=== PATIENT | female | born 1965 | race Caucasian/White ===

== ENCOUNTER 2017-01-10 12:49 | Observation (INO) | payer BC ==
[~2017-01-10] VITALS: Ht 162.6 cm; Wt 116.7 kg
[~2017-01-10 12:49] MED LIST: ALBUAER2 PO; ATRINSX NEB; EPP3/2 IM; PROM25TA9 PO; ZNTT/150 PO
[2017-01-10] MEDS ORDERED: MULT-506 PO (13:22)
[2017-01-10] MEDS ORDERED: SNG10 PO (13:22)
[2017-01-10] MEDS ORDERED: CHOL1CHW10 PO (13:22)
[2017-01-10] MEDS ORDERED: VNTHFA/IN INH (13:22)
--- NOTE | 2017-01-10 13:48 | DIAGNOSTIC IMAGING REPORT ---
CHEST ONE VIEW PORTABLE CLINICAL HISTORY: Atypical chest pain and shortness of breath COMPARISON STUDY: 03/02/2016 FINDINGS: The cardiac and mediastinal contours are normal. There is no evidence of focal pulmonary consolidation. There is no evidence of failure. No pleural effusions are visualized.[ IMPRESSION: No active disease in the chest. Electronically signed by: Gigi Winston M.D. 01/10/2017 1:47 PM Dictated Date/Time: 01/10/2017 1:47 PM
[2017-01-10 13:51] LABS: HEMATOCRIT 43.6 % (37-47); MEAN CELL VOLUME 89.2 fL (80-100); MEAN CORPUSCULAR HEMOGLOBIN 30.9 pg (25-34); MEAN CORPUSCULAR HGB CONC 34.6 g/dl (32-36); MEAN PLATELET VOLUME 10.4 fL (7.4-10.4); PLATELET COUNT 248 K/uL (130-400); RED BLOOD COUNT 4.89 M/uL (4.2-5.4); WHITE BLOOD COUNT 7.54 K/uL (4.8-10.8)
[2017-01-10 14:06] LABS: INR 0.9 (0.9-1.1); PROTHROMBIN TIME (PATIENT) 10.1 SECONDS (9.0-12.0)
[2017-01-10] MEDS ORDERED: ASPIRIN 81 MG CHEW PO STA (14:08)
[2017-01-10 14:09] LABS: BUN/CREATININE RATIO 20.5 (10-20); CALCIUM 9.1 mg/dl (8.5-10.1); POTASSIUM 4.2 mmol/L (3.5-5.1)
[2017-01-10 14:14] LABS: ALB/GLOB RATIO 1.1 (0.9-2); CKMB/CK RATIO 1.1 (0-3.0)
[2017-01-10] MEDS ORDERED: NITROGLYCERIN 0.4 MG SL PER TAB CHARGE SL PRN ×2 (14:15→18:30)
[2017-01-10] MEDS ORDERED: FENTANYL CITRATE INJ 50 MCG/1 ML 2 ML VIAL IV STA (14:52)
--- NOTE | 2017-01-10 15:05 | EMERGENCY ROOM VISIT NOTE ---
History Report prepared by Nilson: Daniel Horton Under the Supervision of: Dr. Victor Manuel Camp D.O. First contact with patient: 13:52 Chief Complaint: SHORTNESS OF BREATH Stated Complaint: SOB AT TIMES, SLIGHT CHEST PAIN, PINS/NEEDLES NECK Nursing Triage Summary: Triage Note: Pt reports "i have this fullness in both sides of my neck and pins and needles down both my arms.' pt reports she has had this feeling since 1100. pt reports chest and neck pain "and i am short of breath at times." History of Present Illness The patient is a 51 year old female who presents to the Emergency Room with complaints of intermittent "pins and needles" feelings in the sides of her neck , and down the back of her arms that she has been experiencing for the past week. The patient is also complaining of a "fullness" feeling in her throat, a "heaviness" in her chest, and difficulty taking a deep breath. These symptoms have been present for the past week, and seemed to only onset with exertion. The symptoms would usually resolve with relaxation, today however the symptoms onset without exertion and did not subside with exercise. The patient does have a history of atrial fibrillation and can feel her heart fluttering intermittently throughout these episodes. Her heart fluttering lasts for about 10 seconds at a time. She is not a diabetic but does have low blood sugar commonly. The patient denies any recent long trips, and no family history of heart disease. Patient denies headache, change in vision, fevers, vomiting, diarrhea, pain with urination, and melena. 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 A total of 10 systems reviewed and were otherwise negative. Past Medical & Surgical Medical Problems: (1) Asthma, Unspecified (2) Chest Pain (3) Cholelithiasis Nos (4) Esophageal Reflux (5) Int Hemrrhoid W Comp Nec Family History Cancer Diabetes mellitus Heart disease Hypertension Lung disease Social History Smoking Status: Never Smoker Alcohol Use: occasionally Marital Status: Housing Status: lives with family Occupation Status: employed Current/Historical Medications Scheduled Cholecalciferol (Vitamin D3), 1,000 UNIT PO 2XWK Epinephrine (Epipen), 0.3 MG IM UD Multivitamin (Multivitamin), 1 TAB PO 2XWK Scheduled PRN Albuterol Hfa (Ventolin Hfa), 1-2 PUFFS INH Q4 PRN for Shortness of Breath Montelukast Sod (Montelukast Sodium), 10 MG PO DAILY PRN for PRN Ranitidine (Zantac), 150 MG PO QPM PRN for PRN Allergies Coded Allergies: Azithromycin (Verified Allergy, Severe, throat swelling, 01/10/17) Adhesives (Verified Allergy, Mild, RASH, 01/10/17) Latex (Verified Allergy, Mild, RASH, 01/10/17) Propoxyphene (Verified Allergy, Mild, RASH, 01/10/17) Amoxicillin (Unverified Allergy, Unknown, UNKNOWN, 01/10/17) Clavulanic Acid (Unverified Allergy, Unknown, UNKNOWN, 01/10/17) Penicillins (Verified Allergy, Unknown, AUGMENTIN, 01/10/17) Physical Exam Vital Signs Date Time Temp Pulse Resp B/P Pulse Ox O2 Delivery O2 Flow Rate FiO2 01/10/17 18:29 73 01/10/17 18:25 75 18 134/95 98 Room Air 01/10/17 16:45 73 18 106/81 98 Room Air 01/10/17 15:47 79 18 114/90 98 Room Air 01/10/17 15:14 61 18 123/95 98 Room Air 01/10/17 14:27 80 18 124/92 98 Room Air 01/10/17 13:46 77 01/10/17 12:53 37.0 83 18 147/83 98 Room Air Physical Exam GENERAL: Sitting up in bed, well appearing, well nourished, no distress, non- toxic EYE EXAM: normal conjunctiva, PERRL and EOM's grossly intact OROPHARYNX: no exudate, no erythema, lips, buccal mucosa, and tongue normal and mucous membranes are moist NECK: supple, no nuchal rigidity, no adenopathy, non-tender LUNGS: Clear to auscultation. Normal chest wall mechanics HEART: no murmurs, S1 normal and S2 normal ABDOMEN: abdomen soft, non-tender, normo-active bowel sounds, no palpable pulsatile, no rebound or guarding. BACK: Back is symmetrical on inspection and there is no deformity, no midline tenderness, no CVA tenderness. SKIN: no rashes and no bruising UPPER EXTREMITIES: Radial pulses equal bilaterally. upper extremities are grossly normal. LOWER EXTREMITIES: Calves equal bilaterally. No pitting edema. NEURO EXAM: Normal sensorium, cranial nerves II-XII grossly intact, normal speech, no gross weakness of arms, no gross weakness of legs. Medical Decision & Procedures ER Provider Diagnostic Interpretation: Xray results per the radiologist and my interpretation. Other results have been interpreted by the radiologist and reviewed by me. CHEST CTA for PULMONARY ARTERIES CT DOSE: 435.36 mGy.cm HISTORY: Chest pain dyspnea TECHNIQUE: Multiaxial CT images of the chest were performed following the intravenous administration of contrast to evaluate the pulmonary arteries. Maximal intensity projection images were also obtained. COMPARISON STUDY: 03/02/2016 FINDINGS: There is a normal caliber thoracic aorta with no evidence for dissection. There is no evidence for pulmonary embolus. No pleural effusions. No pneumothorax. The liver and spleen are unremarkable. No mediastinal or hilar lymphadenopathy. The central airways are patent. The lungs are clear. IMPRESSION: No evidence for pulmonary embolus. The lungs are clear. Electronically signed by: Tucker Escalante M.D. 01/10/2017 3:33 PM Dictated Date/Time: 01/10/2017 3:29 PM CHEST ONE VIEW PORTABLE CLINICAL HISTORY: Atypical chest pain and shortness of breath COMPARISON STUDY: 03/02/2016 FINDINGS: The cardiac and mediastinal contours are normal. There is no evidence of focal pulmonary consolidation. There is no evidence of failure. No pleural effusions are visualized.[ IMPRESSION: No active disease in the chest. Electronically signed by: Gigi Winston M.D. 01/10/2017 1:47 PM Dictated Date/Time: 01/10/2017 1:47 PM Laboratory Results 01/10/17 13:37 01/10/17 13:37 Test 01/10/17 13:37 01/10/17 13:45 01/10/17 17:54 01/10/17 18:18 Red Blood Count 4.89 M/uL (4.2-5.4) Mean Corpuscular Volume 89.2 fL (80-100) Mean Corpuscular Hemoglobin 30.9 pg (25-34) Mean Corpuscular Hemoglobin Concent 34.6 g/dl (32-36) RDW Standard Deviation 41.3 fL (36.4-46.3) RDW Coefficient of Variation 12.7 % (11.5-14.5) Mean Platelet Volume 10.4 fL (7.4-10.4) Prothrombin Time 10.1 SECONDS (9.0-12.0) Prothromb Time International Ratio 0.9 (0.9-1.1) Activated Partial Thromboplast Time 25.2 SECONDS (21.0-31.0) Partial Thromboplastin Ratio 1.0 D-Dimer 530 ug/L FEU (0-500) Anion Gap 11.0 mmol/L (3-11) Est Creatinine Clear Calc Drug Dose 84.6 ml/min Estimated GFR () 76.1 Estimated GFR (Non- 65.6 BUN/Creatinine Ratio 20.5 (10-20) Calcium Level 9.1 mg/dl (8.5-10.1) Total Bilirubin 0.5 mg/dl (0.2-1) Aspartate Amino Transf (AST/SGOT) 21 U/L (15-37) Alanine Aminotransferase (ALT/SGPT) 35 U/L (12-78) Alkaline Phosphatase 64 U/L (45-117) Total Protein 7.4 gm/dl (6.4-8.2) Albumin 3.9 gm/dl (3.4-5.0) Globulin 3.5 gm/dl (2.5-4.0) Albumin/Globulin Ratio 1.1 (0.9-2) Bedside Troponin I 0.000 ng/ml (0-0.045) Creatine Kinase MB Ratio (0-3.0) Laboratory results per my review. Medications Administered Medications (Trade) Dose Ordered Sig/Petar Route Start Time Stop Time Status Last Admin Dose Admin Aspirin (Aspirin Chew) 324 mg NOW STAT PO 01/10/17 14:08 01/10/17 14:09 DC 01/10/17 14:25 324 MG Nitroglycerin (Nitrostat Tab) 0.4 mg Q5M PRN SL 01/10/17 14:15 02/09/17 14:14 01/10/17 14:26 0.4 MG Fentanyl Citrate (Fentanyl Inj) 50 mcg NOW STAT IV 01/10/17 14:52 01/10/17 14:53 DC 01/10/17 15:42 50 MCG Ondansetron HCl (Zofran Inj) 4 mg NOW STAT IV 01/10/17 15:39 01/10/17 15:40 DC 01/10/17 15:42 4 MG ECG Indication: chest pain Rate (beats per minute): 79 Rhythm: sinus rhythm Findings: other (Normal axis, intraventricular conduction delay) Comparison ECG Date: 03/02/2016 Change: no significant change ED Course ED COURSE: Vital signs were reviewed and showed Normal Vitals The patients medical record was reviewed The above diagnostic studies were performed and reviewed. ED treatments and interventions as stated above. 1359: The patient was evaluated in room C4. A complete history and physical examination was performed. 1408: Ordered Aspiring 3234 mg PO. 1415: Ordered Nitroglycerin 0.4 mg SL. 1452: Ordered Fentanyl Citrate 50 mcg IV. 1530: I checked on the patient and updated her at this time, she is feeling better. 1539: Ordered Zofran 4 mg IV. 1548: Upon reevaluation, the patient states her pain has significantly improved.I discussed my findings with the patient and her understands and agrees with the treatment plan. Based on the patients age, coexisting illnesses, exam and lab findings the decision to treat as an inpatient was made. The patient remained stable while under my care. The patient will be evaluated for further management. 1556: I discussed the case with Dr. Wero [place] Hospitalist at this time, he will evaluate the patient for further treatment. Medical Decision Differential diagnoses includes but is not limited to acute coronary syndrome, myocardial infarction, pericarditis, pulmonary embolus, aortic dissection, pneumonia, pneumothorax, musculoskeletal, shingles, esophageal. Patient is a 51-year-old female who presents the ER for exertional chest pain associated with shortness of breath and neck pain which has been present for the past week. Today she got short of breath without exertion. She has no other complaints. Labs including troponin are negative. EKG was nondiagnostic. Chest pain didn't worsen slightly throughout her stay in the ER and repeat EKG was ordered. She was given aspirin. D-dimer was ordered and was positive. CT PE was performed and was negative. She's given fentanyl with resolution of her pain. With her exertional symptoms I elected to admit her to internal medicine for further workup as due to timing of was unable to get a stress test. Consults Time Called: 1544 Consulting Physician: Dr. Wero [place] Hospitalist Returned Call: 1559 I discussed the case with Dr. Wero [place] Hospitalist at this time, he will evaluate the patient for further treatment. Impression Primary Impression: Precordial chest pain Scribe Attestation The scribe's documentation has been prepared under my direction and personally reviewed by me in its entirety. I confirm that the note above accurately reflects all work, treatment, procedures, and medical decision making performed by me. Departure Information Dispostion Being Evaluated By Hospitalist Referrals Kalpesh Martinez M.D. (PCP) Patient Instructions My [facility]
[2017-01-10] MEDS ORDERED: OPTIRAY 320 IV PRN (15:15)
--- NOTE | 2017-01-10 15:34 | DIAGNOSTIC IMAGING REPORT ---
CHEST CTA for PULMONARY ARTERIES CT DOSE: 435.36 mGy.cm HISTORY: Chest pain dyspnea TECHNIQUE: Multiaxial CT images of the chest were performed following the intravenous administration of contrast to evaluate the pulmonary arteries. Maximal intensity projection images were also obtained. COMPARISON STUDY: 03/02/2016 FINDINGS: There is a normal caliber thoracic aorta with no evidence for dissection. There is no evidence for pulmonary embolus. No pleural effusions. No pneumothorax. The liver and spleen are unremarkable. No mediastinal or hilar lymphadenopathy. The central airways are patent. The lungs are clear. IMPRESSION: No evidence for pulmonary embolus. The lungs are clear. Electronically signed by: Tucker Escalante M.D. 01/10/2017 3:33 PM Dictated Date/Time: 01/10/2017 3:29 PM
[2017-01-10] MEDS ORDERED: ONDANSETRON INJ 2 MG/ML 2 ML VIAL IV STA (15:39)
--- NOTE | 2017-01-10 18:26 | History and Physical ---
History & Physical Date & Time of Service: Jan 10, 2017 at 18:23 Chief Complaint: Sob At Times, Slight Chest Pain, Pins/[place] Neck Primary Care Physician: Neptali Martinez M.D. History of Present Illness Source: patient Ms. Ontiveros is a 51 y/o female with PMHx of SVT S/P Ablation (1990), MVP with Regurgitation, Asthma, GERD, and Avascular Necrosis of B/L Shoulders and Hips who presents to the ED complaining of "pins and needles" sensation of her neck and arms 1 week. She also describes the sensation as a fullness in her neck with radiation into the sternum of the chest that produces a heaviness sensation and associated shortness of breath and difficulty taking a deep breath. The symptoms initially occurred when she was exercising on the treadmill. She thought this may be related to blood pressure but when she took her blood pressure it was around 120/80. Initially with rest the symptoms spontaneously subsided. However today, she reports that the similar symptoms reemerged. However this time symptoms presented at rest today. At this point the symptoms have not completely subsided. Reports associated palpitations. States she has a history of SVT and was told she initially had two SA nodes and underwent ablation in 1990. She was treated with Quinidine until 1998 due to multiple runs of SVT. Currently reports control of her palpitations and states they minimally occur. Associated nausea without vomiting. She does report increased stress as she has been caring for a neighbor on hospice for the past 2 weeks. Also reports significant acid reflux. Feels that this has been largely under control at this time. Patient is premenopausal however suspects the beginnings of menopause. She reports that she has borderline high cholesterol. She does not smoke, drink, or use illegal drugs. She does not report a personal history of thyroid issues but states her son has hypothyroidism. She denies fevers/chills, vomiting, abdominal pain, dysuria, constipation/diarrhea. In the ED, initial troponin was negative. EKG with normal sinus rhythm with occasional PVC and incomplete right bundle branch block. D-dimer of 530. CTA of the chest without evidence of pulmonary embolism and lung kay without consolidation. Patient given ASA 324 mg x 1. Nitroglycerin 0.4 mg 1. She reports no relief with nitroglycerin. Received fentanyl 50 mcg which resolved her pain temporarily. She will be admitted to telemetry for chest pain rule out. Past Medical/Surgical History Medical Problems: (1) Asthma, Unspecified (2) Chest Pain (3) Cholelithiasis Nos (4) Esophageal Reflux (5) Int Hemrrhoid W Comp Nec (6) Supraventricular tachycardia Medical Problems: (1) Asthma, Unspecified Status: Chronic (2) Cholelithiasis Nos Status: Chronic (3) Esophageal Reflux Status: Chronic (4) Int Hemrrhoid W Comp Nec Status: Resolved Family History Cancer Diabetes mellitus Heart disease Hypertension Hypothyroidism Lung disease Social History Smoking Status: Never Smoker Marital Status: Occupational Status: employed Immunizations History of Influenza Vaccine: No History of Tetanus Vaccine?: Unknown Tetanus Immunization Date: Jul 09, 2004 History of Pneumococcal: No History of Hepatitis B Vaccine: Yes Hepatitis Immunization Date: Jul 09, 1998 Multi-Drug Resistant Organisms History of MDRO: No Allergies Coded Allergies: Azithromycin (Verified Allergy, Severe, throat swelling, 01/10/17) Adhesives (Verified Allergy, Mild, RASH, 01/10/17) Latex (Verified Allergy, Mild, RASH, 01/10/17) Propoxyphene (Verified Allergy, Mild, RASH, 01/10/17) Amoxicillin (Unverified Allergy, Unknown, UNKNOWN, 01/10/17) Clavulanic Acid (Unverified Allergy, Unknown, UNKNOWN, 01/10/17) Penicillins (Verified Allergy, Unknown, AUGMENTIN, 01/10/17) Home Medications Scheduled Cholecalciferol (Vitamin D3), 1,000 UNIT PO 2XWK Epinephrine (Epipen), 0.3 MG IM UD Multivitamin (Multivitamin), 1 TAB PO 2XWK Scheduled PRN Albuterol Hfa (Ventolin Hfa), 1-2 PUFFS INH Q4 PRN for Shortness of Breath Montelukast Sod (Montelukast Sodium), 10 MG PO DAILY PRN for PRN Ranitidine (Zantac), 150 MG PO QPM PRN for PRN Review of Systems Constitutional: No chills, No fever Eyes: No worsening of vision ENT: + problem reported (neck numbness/tingling; neck "fullness"), No nasal symptoms, No sore throat, No trouble swallowing Respiratory: + dyspnea on exertion, No cough, No dyspnea at rest Cardiovascular: + chest pain ("heaviness"), + palpitations Abdomen: + nausea, No constipation, No diarrhea, No pain, No vomiting Musculoskeletal: No calf pain, No swelling Genitourinary - Female: No dysuria Neurologic: + numbness/tingling (neck), + problem reported (intermittent lightheadedness) Integumentary: No rash Physical Exam Vital Signs Date Time Temp Pulse Resp B/P Pulse Ox O2 Delivery O2 Flow Rate FiO2 01/10/17 16:45 73 18 106/81 98 Room Air 01/10/17 15:47 79 18 114/90 98 Room Air 01/10/17 15:14 61 18 123/95 98 Room Air 01/10/17 14:27 80 18 124/92 98 Room Air 01/10/17 13:46 77 01/10/17 12:53 37.0 83 18 147/83 98 Room Air General Appearance: WD/WN, no apparent distress Head: normocephalic, atraumatic Eyes: PERRL, sclerae normal ENT: hearing grossly normal Neck: supple, no adenopathy, thyroid normal, trachea midline Respiratory/Chest: lungs clear, normal breath sounds, no respiratory distress, no accessory muscle use Cardiovascular: regular rate, rhythm, no gallop, no murmur Abdomen/GI: normal bowel sounds, non tender, soft Back: normal inspection, no CVA tenderness Extremities/Musculoskelatal: no calf tenderness, no pedal edema Neurologic/Psych: alert, oriented x 3 Skin: normal color, warm/dry Diagnostics Laboratory Results Results Past 24 Hours Test 01/10/17 13:37 01/10/17 13:45 01/10/17 17:54 01/10/17 18:18 Range/Units White Blood Count 7.54 4.8-10.8 K/uL Red Blood Count 4.89 4.2-5.4 M/uL Hemoglobin 15.1 12.0-16.0 g/dL Hematocrit 43.6 37-47 % Mean Corpuscular Volume 89.2 80-100 fL Mean Corpuscular Hemoglobin 30.9 25-34 pg Mean Corpuscular Hemoglobin Concent 34.6 32-36 g/dl RDW Standard Deviation 41.3 36.4-46.3 fL RDW Coefficient of Variation 12.7 11.5-14.5 % Platelet Count 248 130-400 K/uL Mean Platelet Volume 10.4 7.4-10.4 fL Prothrombin Time 10.1 9.0-12.0 SECONDS Prothromb Time International Ratio 0.9 0.9-1.1 Activated Partial Thromboplast Time 25.2 21.0-31.0 SECONDS Partial Thromboplastin Ratio 1.0 D-Dimer 530 0-500 ug/L FEU Sodium Level 140 136-145 mmol/L Potassium Level 4.2 3.5-5.1 mmol/L Chloride Level 105 98-107 mmol/L Carbon Dioxide Level 24 21-32 mmol/L Anion Gap 11.0 3-11 mmol/L Blood Urea Nitrogen 21 7-18 mg/dl Creatinine 1.00 0.60-1.20 mg/dl Est Creatinine Clear Calc Drug Dose 84.6 ml/min Estimated GFR () 76.1 Estimated GFR (Non- 65.6 BUN/Creatinine Ratio 20.5 10-20 Random Glucose 84 70-99 mg/dl Calcium Level 9.1 8.5-10.1 mg/dl Total Bilirubin 0.5 0.2-1 mg/dl Aspartate Amino Transf (AST/SGOT) 21 15-37 U/L Alanine Aminotransferase (ALT/SGPT) 35 12-78 U/L Alkaline Phosphatase 64 45-117 U/L Total Creatine Kinase 71 26-192 U/L Creatine Kinase MB 0.8 0.5-3.6 ng/ml Creatine Kinase MB Ratio 1.1 0-3.0 Total Protein 7.4 6.4-8.2 gm/dl Albumin 3.9 3.4-5.0 gm/dl Globulin 3.5 2.5-4.0 gm/dl Albumin/Globulin Ratio 1.1 0.9-2 Bedside Troponin I 0.000 0-0.045 ng/ml Diagnostic Radiology CHEST CTA for PULMONARY ARTERIES CT DOSE: 435.36 mGy.cm HISTORY: Chest pain dyspnea TECHNIQUE: Multiaxial CT images of the chest were performed following the intravenous administration of contrast to evaluate the pulmonary arteries. Maximal intensity projection images were also obtained. COMPARISON STUDY: 03/02/2016 FINDINGS: There is a normal caliber thoracic aorta with no evidence for dissection. There is no evidence for pulmonary embolus. No pleural effusions. No pneumothorax. The liver and spleen are unremarkable. No mediastinal or hilar lymphadenopathy. The central airways are patent. The lungs are clear. IMPRESSION: No evidence for pulmonary embolus. The lungs are clear. CHEST ONE VIEW PORTABLE CLINICAL HISTORY: Atypical chest pain and shortness of breath COMPARISON STUDY: 03/02/2016 FINDINGS: The cardiac and mediastinal contours are normal. There is no evidence of focal pulmonary consolidation. There is no evidence of failure. No pleural effusions are visualized.[ IMPRESSION: No active disease in the chest. EKG Sinus rhythm with occasional Premature ventricular complexes Incomplete right bundle branch block Abnormal ECG When compared with ECG of 02-MAR-2016 19:16, Premature ventricular complexes are now Present Confirmed by NEPTALI WATKINS ([id number]) on 01/10/2017 3:32:15 PM Impression Assessment and Plan Ms. Ontiveros is a 51 y/o female with PMHx of SVT S/P Ablation (1990), MVP with Regurgitation, Asthma, GERD, and Avascular Necrosis of B/L Shoulders and Hips who presents to the ED complaining of "pins and needles" sensation of her neck and arms 1 week. Neck Fullness with Associated Chest Heaviness and SOB: - Considered avascular necrosis contributing however symptoms are not exacerbated with ROM exercises - TSH - R/O thyroid dysfunction - no enlargement or nodules appreciated on exam - Serial cardiac enzymes - Nitroglycerin 0.4 mg SL PRN - ASA 81 mg daily - Toradol 15 mg IV PRN - Stress echo SVT S/P Ablation: - EKG with intermittent PVCs - monitor on telemetry GERD: - Zantac 150 mg daily Asthma: - Ventolin PRN & Singulair 10 mg daily DVT Prophylaxis: - TEDs/SCDs Code Status: FULL RESUSCITATION Disposition: Patient from home Pt seen/examined independently - above H&P and orders discussed w/pt and PA admitted with CP - minimal risk factors present however her pain became worse when she was exercising and she does so regularly NTG did not help - pain radiates into neck and is partly reproducible OE AAO x 3 S1,2 R CTAB NTND pain on movement of neck P: As pain has persisted we will schedule a stress echo in the AM Pt aware and agreeable - no chest pain on admission - EKG and trop WNL Level of Care Telemetry Resuscitation Status FULL RESUSCITATION VTE Prophylaxis VTE Risk Assessment Done? Y/N: Yes Risk Level: Moderate Given or contraindicated: T.E.D. Stockings, SCD's Social Service Consult None Apply
[2017-01-10] MEDS ORDERED: ACETAMINOPHEN 325 MG TAB PO PRN (18:30)
[2017-01-10] MEDS ORDERED: MAGNESIUM HYDROXIDE SUSP 30 ML UDC PO PRN (18:30)
[2017-01-10] MEDS ORDERED: KETOROLAC TROMETHAMINE 15 MG/ML VIAL IM PRN (18:30)
[2017-01-10] MEDS ORDERED: ALUMINUM/MAGNESIUM/SIMETH (MAALOX MAX) 30 ML UDC PO PRN (18:30)
[2017-01-10] MEDS ORDERED: ALBUTEROL HFA 8 GM INHALER INH PRN (18:30)
[2017-01-10] MEDS ORDERED: ONDANSETRON INJ 2 MG/ML 2 ML VIAL IV PRN (18:30)
[2017-01-10] MEDS ORDERED: RANITIDINE HCL 150 MG TAB PO PRN (18:30)
[2017-01-10] MEDS ORDERED: MONTELUKAST SOD 10 MG TAB PO PRN (18:30)
[2017-01-10] MEDS ORDERED: POLYETHYLENE (MIRALAX) 17 GM PACK PO PRN (18:30)
[2017-01-10 18:45] VITALS: BP 117/83; PULSE 77; TEMP 36.7; O2SAT 98; Ht 162.6 cm; Wt 116.7 kg
[2017-01-10 18:51] LABS: CKMB/CK RATIO 0.8 (0-3.0)
[2017-01-10] MEDS ORDERED: IV FLUIDS COMPLETED PRN (19:00)
[2017-01-10 20:00] VITALS: BP 117/83; PULSE 91; TEMP 36.7; O2SAT 98
[2017-01-10] MEDS ORDERED: INFLUENZA VIRUS QUAD VACCINE 0.5 ML SYR IM. ONE (20:00)
[2017-01-10] MEDS ORDERED: INFLUENZA ADMINISTRATION CHARGE ONE (20:00)
[2017-01-10] MEDS ORDERED: KETOROLAC TROMETHAMINE 15 MG/ML VIAL IV PRN (22:00)
[2017-01-11] VITALS: BP 98/55; PULSE 78; TEMP 36.4; O2SAT 99
[2017-01-11 03:17] VITALS: BP 109/69; PULSE 74; TEMP 36.8; O2SAT 98
[2017-01-11 04:00] VITALS: O2SAT 98
[2017-01-11 06:41] LABS: HEMATOCRIT 41.8 % (37-47); MEAN CELL VOLUME 87.6 fL (80-100); MEAN CORPUSCULAR HEMOGLOBIN 29.6 pg (25-34); MEAN CORPUSCULAR HGB CONC 33.7 g/dl (32-36); MEAN PLATELET VOLUME 10.2 fL (7.4-10.4); PLATELET COUNT 223 K/uL (130-400); RED BLOOD COUNT 4.77 M/uL (4.2-5.4); WHITE BLOOD COUNT 6.33 K/uL (4.8-10.8)
[2017-01-11 07:07] LABS: BUN/CREATININE RATIO 17.1 (10-20); CALCIUM 8.9 mg/dl (8.5-10.1); CREATININE 1.2 mg/dl (0.60-1.20); POTASSIUM 4.6 mmol/L (3.5-5.1)
[2017-01-11 07:56] VITALS: BP 125/84; PULSE 80; TEMP 36.4; O2SAT 98
[2017-01-11] MEDS ORDERED: ASPIRIN 81 MG ECTAB PO SCH (09:00)
[2017-01-11] MEDS ORDERED: PERFLUTREN LIPID MICROSPHERE (DEFINITY) IV ONE (10:26)
--- NOTE | 2017-01-11 11:40 | EXERCISE STRESS ECHO ---
*NOTICE TO RECEIVING LIBERTARIAN AGENCY This information is strictly Confidential and protected under [place] law. [place] law prohibits you from making any further disclosure of this information unless further disclosure is expressly permitted by the written consent of the person to whom it pertains or is authorized by law. A general authorization for the release of medical or other information is not sufficient for this purpose. Hospital accepts no responsibility if the information is made available to any other person, INCLUDING THE PATIENT. Interpretation Summary * Name: SONYN POE Study Date: 01/11/2017 08:34 AM BP: 107/71 mmHg * Patient Location: [facility] HR: 74 * : 1965 (M/d/yyyy) Gender: Female Height: 64 in * Age: 51 yrs Ethnicity: CA Weight: 257 lb * Ordering Physician: Genna Upton * Referring Physician: Self, Referred * Performed By: Jak Espinal RCS * * Reason For Study: Chest Pain * BSA: 2.2 m2 * -- Conclusions -- * Normal stress echocardiogram at 7 METS and a peak heart rate of 85% predicted maximum. * No exercise induced chest pain. * No ECG changes. * Baseline echocardiogram notes normal left ventricular systolic function and no significant valvular pathology. Procedure Details * ECHOEX, CPT #[id number] * ECHO COLOR FLOW, CPT #[id number] * ECHO DOPPLER, CPT #[id number] * A contrast injection of Definity was performed to improve assessment of LV function. * Contrast was injected into an intravenous site in the right arm. * One vial of Definity ultrasound contrast was diluted in normal saline to a total volume of 10 ml. A total of '4' ml of solution was administered during imaging. * Lot # [id number] of Definity utilized for procedure. * Expiration date . * The attending nurse who injected the contrast agent was Delmar Mon RN. Left Ventricle * The left ventricle is normal in size. * There is normal left ventricular wall thickness. * Ejection Fraction = 55-60%. * Left ventricular systolic function is normal. * Resting wall motion: Normal. Stress wall motion: Appropriate increase in Left ventricular systolic function and decrease in cavity size. No stress induced segmental wall motion abnormalities. Right Ventricle * The right ventricle is not well visualized. * The right ventricular systolic function is normal as assessed by tricuspid annular plane systolic excursion (TAPSE) (normal >1.5 cm). Atria * The left atrial size is normal. * Right atrium not well visualized. * There is no evidence of atrial septal defect, but resolution does not allow assessment for a patent foramen ovale. Mitral Valve * The mitral valve is grossly normal. * There is no mitral valve stenosis. * Significant mitral regurgitation is absent. Tricuspid Valve * The tricuspid valve is not well visualized. * Significant tricuspid regurgitation is absent. Aortic Valve * The aortic valve is not well visualized. * The aortic valve opens well. * No hemodynamically significant valvular aortic stenosis. * There is no significant aortic regurgitation. Pulmonic Valve * The pulmonary valve is not well seen, but the Doppler examination is normal without significant regurgitation or stenosis. * Trace pulmonic valvular regurgitation. Great Vessels * The aortic root is normal size. Pericardium * There is no pericardial effusion. Stress Parameters * Normal baseline electrocardiogram. * Stress ECG: No ST changes. No arrhythmias. * The stress portion of this study was personally supervised by the undersigned interpreting physician. * Rest heart rate was '74' BPM. * Rest blood pressure was '107/71' * Maximum blood pressure was '187/96' * Maximum heart rate achieved was 153 bpm. * Maximum heart rate was 90 % of maximum age-predicted heart rate. * Total exercise time was '5:50' * Maximum exercise MET level achieved was '7.0' METS * Maximum treadmill speed was '2.5' miles per hour. * Maximum treadmill elevation was '12'% grade. MMode 2D Measurements and Calculations IVSd 0.92 cm IVSs 1.2 cm LVIDd 4.5 cm LVIDs 3.2 cm LVPWd 0.91 cm LVPWs 1.3 cm IVS/LVPW 1.0 FS 28.5 % EDV(Teich) 90.8 ml ESV(Teich) 40.8 ml EF(Teich) 55.1 % EDV(cubed) 89.1 ml ESV(cubed) 32.6 ml EF(cubed) 63.5 % % IVS thick 31.7 % % LVPW thick 43.2 % LV mass(C)d 134.9 grams LV mass(C)dI 62.0 grams/m\S\2 LV mass(C)s 129.0 grams LV mass(C)sI 59.3 grams/m\S\2 CO(Teich) 4.9 l/min CI(Teich) 2.2 l/min/m\S\2 SV(Teich) 50.1 ml SI(Teich) 23.0 ml/m\S\2 CO(cubed) 5.5 l/min CI(cubed) 2.5 l/min/m\S\2 SV(cubed) 56.5 ml SI(cubed) 26.0 ml/m\S\2 Ao root diam 3.0 cm Ao root area 7.1 cm\S\2 ACS 1.7 cm LA dimension 2.7 cm LA/Ao 0.91 LVAd ap4 33.9 cm\S\2 LVLd ap4 10.5 cm EDV(MOD-sp4) 92.0 ml LVAs ap4 18.4 cm\S\2 LVLs ap4 9.3 cm ESV(MOD-sp4) 31.0 ml EF(MOD-sp4) 66.3 % LVAd ap2 28.0 cm\S\2 LVLd ap2 10.8 cm EDV(MOD-sp2) 62.0 ml LVAs ap2 15.3 cm\S\2 LVLs ap2 9.0 cm ESV(MOD-sp2) 23.0 ml EF(MOD-sp2) 62.9 % CO(MOD-sp4) 5.9 l/min CI(MOD-sp4) 2.7 l/min/m\S\2 SV(MOD-sp4) 61.0 ml SI(MOD-sp4) 28.0 ml/m\S\2 CO(MOD-sp2) 3.8 l/min CI(MOD-sp2) 1.7 l/min/m\S\2 SV(MOD-sp2) 39.0 ml SI(MOD-sp2) 17.9 ml/m\S\2 Doppler Measurements and Calculations MV E max sean 93.5 cm/sec MV A max sean 85.7 cm/sec MV E/A 1.1 MV P1/2t max sean 82.1 cm/sec MV P1/2t 98.0 msec MVA(P1/2t) 2.2 cm\S\2 MV dec slope 245.4 cm/sec\S\2 MV dec time 0.24 sec Ao V2 max 111.3 cm/sec Ao max PG 5.0 mmHg Ao max PG (full) 0.08 mmHg LV V1 max PG 4.9 mmHg LV V1 max 110.4 cm/sec PA V2 max 87.9 cm/sec PA max PG 3.1 mmHg PI max sean 158.1 cm/sec PI max PG 10.0 mmHg PI dec slope 280.4 cm/sec\S\2 PI P1/2t 165.2 msec
--- NOTE | 2017-01-11 11:43 | Discharge Instructions ---
Discharge Instructions Date of Service Jan 11, 2017. Admission Reason for Admission: Chest Pain Discharge Discharge Diagnosis / Problem: Non-cardiac chest pain Discharge Goals Goal(s): Decrease discomfort, Improve function, Diagnostic testing, Therapeutic intervention Activity Recommendations Activity Limitations: resume your previous activity . Instructions / Follow-Up Instructions / Follow-Up You were admitted to the hospital for overnight observation after presenting to the ER with numbness/tingling in the neck and chest pain. You were admitted to rule out a cardiac etiology of the chest pain. Cardiac monitoring did not reveal any arrhythmias and you remained in a normal sinus rhythm. A stress echocardiogram (ultrasound of the heart) came back normal without acute cardiac findings. A repeat EKG did not show any ischemic changes. Your lab work came back largely normal without any significant findings. Your thyroid function and your cholesterol panel were both within normal limits. Your magnesium, which can cause numbness/tingling if it is low, was also within normal limits. Your symptoms may be related to your charity-menopausal state, so you should follow up with your primary care provider regarding further evaluation and work up. Medications: *You may resume your home medications as prescribed. No changes have been made. Follow up: *Please follow up with your primary care within in 1 week regarding your hospital stay. Please seek medical attention if you experience fevers, chills, sweats, chest pain, shortness of breath, lightheadedness, loss of consciousness, nausea, vomiting or if your numbness/tingling gets worse or is concerning. Current Hospital Diet Patient's current hospital diet: Regular Diet Discharge Diet Recommended Diet: Regular Diet Procedures Procedures Performed: Stress echocardiogram Pending Studies Studies pending at discharge: no Laboratory Results Lipid Panel Test 01/11/17 06:00 Range/Units Triglycerides Level 74 0-150 mg/dl Cholesterol Level 192 0-200 mg/dl HDL Cholesterol 48 mg/dl Cholesterol/HDL Ratio 4.0 LDL Cholesterol, Calculated 129 mg/dl Medical Emergencies . Who to Call and When: Medical Emergencies: If at any time you feel your situation is an emergency, please call 911 immediately. . Non-Emergent Contact Non-Emergency issues call your: Primary Care Provider Call Non-Emergent contact if: you have a fever, your pain is not controlled, your pain is worsening, your pain is concerning you, you have any medication questions . Past History Medical & Surgical History: (1) Paresthesia (2) Chest Pain . "Provider Documentation" section prepared by Dayanna Fairchild. VTE Core Measure Inpt VTE Proph given/why not?: Anamaria Robert, SCD's
[2017-01-11 12:09] VITALS: BP 125/84; PULSE 80; TEMP 36.4; O2SAT 98
--- NOTE | 2017-01-11 12:40 | Discharge Summary ---
Discharge Summary Date of Service Jan 11, 2017. (Dayanna Fairchild, DEJA) Discharge Summary Admission Date: Jan 10, 2017 at 18:19 Discharge Date: Jan 11, 2017 Discharge Disposition: Home Principal Diagnosis: Chest pain, paresthesia Immunizations: Have You Had Influenza Vaccine: No History of Tetanus Vaccine?: Unknown Tetanus Immunization Date: Jul 09, 2004 History of Pneumococcal: No History of Hepatitis B Vaccine: Yes Hepatitis Immunization Date: Jul 09, 1998 Procedures: [address] [place] [address] Performing Location: [facility] Patient Name: SONNY POE Dictating Provider: Kalpesh Richardson M.D. Dictation Date: Report Signed By: Date: 1965 Elementary Supervisor: JUDY Room/Bed: [facility] Family Physician: Kalpesh Martinez M.D. SC: C.2T Primary Care Physician: Kalpesh Martinez M.D. Adm Date: 01/10/17 Attending Physician: Darien Denise D.O. Dis Date: Admitting Physician: Fausto Conteh MD Ordering Physician: *NOTICE TO RECEIVING CONSTITUTION PARTY AGENCY This information is strictly Confidential and protected under [place] law. [place] law prohibits you from making any further disclosure of this information unless further disclosure is expressly permitted by the written consent of the person to whom it pertains or is authorized by law. A general authorization for the release of medical or other information is not sufficient for this purpose. Hospital accepts no responsibility if the information is made available to any other person, INCLUDING THE PATIENT. Interpretation Summary * Name: SONNY POE Study Date: 01/11/2017 08:34 AM BP: 107/71 mmHg * Patient Location: [facility] HR: 74 * : 1965 (M/d/yyyy) Gender: Female Height: 64 in * Age: 51 yrs Ethnicity: CA Weight: 257 lb * Ordering Physician: Genna Upton * Referring Physician: Self, Referred * Performed By: Jak Espinal RCS * * Reason For Study: Chest Pain * BSA: 2.2 m2 * -- Conclusions -- * Normal stress echocardiogram at 7 METS and a peak heart rate of 85% predicted maximum. * No exercise induced chest pain. * No ECG changes. * Baseline echocardiogram notes normal left ventricular systolic function and no significant valvular pathology. Procedure Details * ECHOEX, CPT #[id number] * ECHO COLOR FLOW, CPT #[id number] * ECHO DOPPLER, CPT #[id number] * A contrast injection of Definity was performed to improve assessment of LV function. * Contrast was injected into an intravenous site in the right arm. * One vial of Definity ultrasound contrast was diluted in normal saline to a total volume of 10 ml. A total of '4' ml of solution was administered during imaging. * Lot # [id number] of Definity utilized for procedure. * Expiration date . * The attending nurse who injected the contrast agent was Delmar Mon RN. Left Ventricle * The left ventricle is normal in size. * There is normal left ventricular wall thickness. * Ejection Fraction = 55-60%. * Left ventricular systolic function is normal. * Resting wall motion: Normal. Stress wall motion: Appropriate increase in Left ventricular systolic function and decrease in cavity size. No stress induced segmental wall motion abnormalities. Right Ventricle * The right ventricle is not well visualized. * The right ventricular systolic function is normal as assessed by tricuspid annular plane systolic excursion (TAPSE) (normal >1.5 cm). Atria * The left atrial size is normal. * Right atrium not well visualized. * There is no evidence of atrial septal defect, but resolution does not allow assessment for a patent foramen ovale. Mitral Valve * The mitral valve is grossly normal. * There is no mitral valve stenosis. * Significant mitral regurgitation is absent. Tricuspid Valve * The tricuspid valve is not well visualized. * Significant tricuspid regurgitation is absent. Aortic Valve * The aortic valve is not well visualized. * The aortic valve opens well. * No hemodynamically significant valvular aortic stenosis. * There is no significant aortic regurgitation. Pulmonic Valve * The pulmonary valve is not well seen, but the Doppler examination is normal without significant regurgitation or stenosis. * Trace pulmonic valvular regurgitation. Great Vessels * The aortic root is normal size. Pericardium * There is no pericardial effusion. Stress Parameters * Normal baseline electrocardiogram. * Stress ECG: No ST changes. No arrhythmias. * The stress portion of this study was personally supervised by the undersigned interpreting physician. * Rest heart rate was '74' BPM. * Rest blood pressure was '107/71' * Maximum blood pressure was '187/96' * Maximum heart rate achieved was 153 bpm. * Maximum heart rate was 90 % of maximum age-predicted heart rate. * Total exercise time was '5:50' * Maximum exercise MET level achieved was '7.0' METS * Maximum treadmill speed was '2.5' miles per hour. * Maximum treadmill elevation was '12'% grade. MMode 2D Measurements and Calculations IVSd 0.92 cm IVSs 1.2 cm LVIDd 4.5 cm LVIDs 3.2 cm LVPWd 0.91 cm LVPWs 1.3 cm IVS/LVPW 1.0 FS 28.5 % EDV(Teich) 90.8 ml ESV(Teich) 40.8 ml EF(Teich) 55.1 % EDV(cubed) 89.1 ml ESV(cubed) 32.6 ml EF(cubed) 63.5 % % IVS thick 31.7 % % LVPW thick 43.2 % LV mass(C)d 134.9 grams LV mass(C)dI 62.0 grams/m\\S\\2 LV mass(C)s 129.0 grams LV mass(C)sI 59.3 grams/m\\S\\2 CO(Teich) 4.9 l/min CI(Teich) 2.2 l/min/m\\S\\2 SV(Teich) 50.1 ml SI(Teich) 23.0 ml/m\\S\\2 CO(cubed) 5.5 l/min CI(cubed) 2.5 l/min/m\\S\\2 SV(cubed) 56.5 ml SI(cubed) 26.0 ml/m\\S\\2 Ao root diam 3.0 cm Ao root area 7.1 cm\\S\\2 ACS 1.7 cm LA dimension 2.7 cm LA/Ao 0.91 LVAd ap4 33.9 cm\\S\\2 LVLd ap4 10.5 cm EDV(MOD-sp4) 92.0 ml LVAs ap4 18.4 cm\\S\\2 LVLs ap4 9.3 cm ESV(MOD-sp4) 31.0 ml EF(MOD-sp4) 66.3 % LVAd ap2 28.0 cm\\S\\2 LVLd ap2 10.8 cm EDV(MOD-sp2) 62.0 ml LVAs ap2 15.3 cm\\S\\2 LVLs ap2 9.0 cm ESV(MOD-sp2) 23.0 ml EF(MOD-sp2) 62.9 % CO(MOD-sp4) 5.9 l/min CI(MOD-sp4) 2.7 l/min/m\\S\\2 SV(MOD-sp4) 61.0 ml SI(MOD-sp4) 28.0 ml/m\\S\\2 CO(MOD-sp2) 3.8 l/min CI(MOD-sp2) 1.7 l/min/m\\S\\2 SV(MOD-sp2) 39.0 ml SI(MOD-sp2) 17.9 ml/m\\S\\2 Doppler Measurements and Calculations MV E max sean 93.5 cm/sec MV A max sean 85.7 cm/sec MV E/A 1.1 MV P1/2t max sean 82.1 cm/sec MV P1/2t 98.0 msec MVA(P1/2t) 2.2 cm\\S\\2 MV dec slope 245.4 cm/sec\\S\\2 MV dec time 0.24 sec Ao V2 max 111.3 cm/sec Ao max PG 5.0 mmHg Ao max PG (full) 0.08 mmHg LV V1 max PG 4.9 mmHg LV V1 max 110.4 cm/sec PA V2 max 87.9 cm/sec PA max PG 3.1 mmHg PI max sean 158.1 cm/sec PI max PG 10.0 mmHg PI dec slope 280.4 cm/sec\\S\\2 PI P1/2t 165.2 msec (Dayanna Fairchild, PA-C) Medication Reconciliation Continued Medications: Albuterol Hfa (Ventolin Hfa) 200 Puffs/79472 Mcg Aers 1-2 PUFFS INH Q4 PRN for Shortness of Breath, #1 INHALER Cholecalciferol (Vitamin D3) 1,000 Unit Chw 1000 UNIT PO 2XWK Epinephrine (Epipen) 0.3 Mg/0.3 Ml Inj 0.3 MG IM UD, #1 Montelukast Sod (Montelukast Sodium) 10 Mg Tab 10 MG PO DAILY PRN for PRN, #30 Multivitamin (Multivitamin) Tab 1 TAB PO 2XWK, TAB Ranitidine (Zantac) 150 Mg Tab 150 MG PO QPM PRN for PRN, TAB Referrals At Discharge Follow up Referrals: Family Practice Referral - Within 1 Week with Kalpesh Martinez M.D. Discharge Exam Patient's complaints of paresthesias in her neck as well as a "full" feeling. The paresthesias are felt bilaterally in the neck and extend to the back of her head. She states that this morning the paresthesias have been intermittent whereas yesterday they were constant. She currently denies any pain in the neck or chest or shortness of breath. She reports her hands feeling hot, which is new this morning. The patient denies fevers, chills, sweats, chest pain, palpitations, claudication, cough, wheezing, shortness of breath, nausea, vomiting, abdominal pain, dysuria, hematuria, urinary retention, paralysis, and weakness. Review of Systems: Constitutional: No chills, No fever, No sweats Eyes: No diplopia, No eye pain, No worsening of vision ENT: No hearing loss, No sore throat, No trouble swallowing Respiratory: No cough, No shortness of breath, No wheezing Cardiovascular: No chest pain, No claudication, No palpitations Abdomen: No nausea, No pain, No vomiting Musculoskeletal: No calf pain, No joint pain, No muscle pain Genitourinary - Female: No dysuria, No hematuria, No urinary retention Neurologic: + numbness/tingling (neck and back of head), No paralysis, No weakness Integumentary: No itch, No rash Physical Exam: General Appearance: WD/WN, no apparent distress, + obese Eyes: normal inspection, PERRL, EOMI ENT: normal ENT inspection, hearing grossly normal, pharynx normal Neck: supple, no adenopathy, thyroid normal, no JVD, trachea midline Respiratory/Chest: chest non-tender, lungs clear, normal breath sounds, no respiratory distress Cardiovascular: regular rate, rhythm, no gallop, no murmur Abdomen / GI: normal bowel sounds, non tender, soft Extremities: normal inspection, no calf tenderness, no pedal edema Neurologic/Psychiatric: alert, normal mood/affect, oriented x 3 Skin: normal color, warm/dry, no rash (Dayanna Fairchild ., PA-C) Hospital Course 51 y/o female with a history of SVT s/p ablation (1990), MVP, asthma, GERD, and 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 The patient's symptoms have been intermittent for the last week, however, on the day of arrival, numbness and tingling have been constant. The patient also complained of a chest heaviness and shortness of breath with initial onset during exercise, however, the symptoms did recur at rest. Initial EKG was negative for ischemic changes. Cardiac enzymes were negative. CT of the chest was negative for pulmonary embolism. Chest pain not relieved by nitroglycerin. Neck paresthesias/fullness, chest heaviness, SOB -Admitted to telemetry for chest pain rule out. No acute events overnight on telemetry. Patient remained in sinus rhythm -Cardiac enzymes negative 3 -Repeat EKG showed no ischemic changes -Stress echocardiogram came back normal -TSH within normal limits. No palpable thyroid enlargement or nodules -Magnesium within normal limits -ASA 81 mg PO qd -Toradol 15 mg IV prn pain -May be secondary to perimenopausal changes. Patient will follow up with PCP for further evaluation SVT s/p ablation -Initial EKG with intermittent PVCs -Repeat EKG shows no PVCs Asthma -Continue Ventolin prn & Singulair 10 mg PO qd GERD -Continue Zantac 150 mg daily DVT prophylaxis -BRIAN garcia and SHAHRAMs Code Status -Level I, FULL RESUSCITATION STATUS Dispo -Pt medically stable for discharge to home as cardiac workup negative -F/u with PCP in 1 week regarding paresthesias Total Time Spent: Greater than 30 minutes This includes examination of the patient, discharge planning, medication reconciliation, and communication with other providers. (Dayanna Fairchild ., PA-C) I agree with PA assessment and plan and have seen and examined pt myself Pt presented with neck fullness and numbness down both arms VSS Labs reviewed No EKG changes from prev Stress ECHO unremarkable ?from perimenopausal changes Discharge home (Darien Denise D.OSeveriano) Discharge Instructions Please refer to the electronic Patient Visit Report (Discharge Instructions) for additional information. (Dayanna Farichild ., PA-C) Additional Copies To Kalpesh Martinez M.D.
[2017-07-12] MEDS ORDERED: CALC1TAB25 PO (09:14)
[2017-07-12] MEDS ORDERED: NAPR1TAB9 PO (09:14)
[2017-07-12] MEDS ORDERED: CLR10 PO (09:14)
[2017-07-20] MEDS ORDERED: OXYC-57 PO (10:39)
== END 2017-01-11 13:24 | disposition home or self-care (01) ==
LOC: ENRESERVDT → ENRESERVTM → C.EDB 12:50 → C.2T 18:19
PROVIDERS: ADMIT Internal Medicine; ATTEND Hospitalist
DX: R07.89 Other chest pain (principal); R20.2 Paresthesia of skin; J45.909 Unspecified asthma, uncomplicated; K21.9 Gastro-esophageal reflux disease without esophagitis; I48.91 Unspecified atrial fibrillation; E03.9 Hypothyroidism, unspecified; I45.10 Unspecified right bundle-branch block; M87.80 Other osteonecrosis, unspecified bone; M87.811 Other osteonecrosis, right shoulder; M87.812 Other osteonecrosis, left shoulder; M87.851 Other osteonecrosis, right femur; M87.852 Other osteonecrosis, left femur; Z83.3 Family history of diabetes mellitus; Z82.49 Family history of ischemic heart disease and other diseases of the circulatory system

== ENCOUNTER 2017-03-27 13:12 | Emergency (ER) | payer BC ==
[~2017-03-27] VITALS: Ht 162.6 cm; Wt 116.4 kg
[~2017-03-27 13:12] MED LIST changes: -ALBUAER2 PO; -ATRINSX NEB; +CHOL1CHW10 PO; +MULT-506 PO; -PROM25TA9 PO; +SNG10 PO; +VNTHFA/IN INH
[2017-03-27 13:14] VITALS: TEMP 36.3; Ht 162.6 cm; Wt 116.4 kg
[2017-03-27] MEDS ORDERED: KETOROLAC TROMETHAMINE 30 MG/ML VIAL IV STA (13:33)
[2017-03-27] MEDS ORDERED: ONDANSETRON INJ 2 MG/ML 2 ML VIAL IV STA (13:33)
[2017-03-27] MEDS ORDERED: SODIUM CHLORIDE 0.9% 1000ML 2,000 ML IV STA (13:33)
--- NOTE | 2017-03-27 13:38 | EMERGENCY ROOM VISIT NOTE ---
History Report prepared by Nilson: Anisa Keys Under the Supervision of: Dr. Kalpesh Link D.O. First contact with patient: 13:20 Chief Complaint: ABDOMINAL PAIN Stated Complaint: GARCÍA, VOMITING, DIZZY, CHILLS, DIARRHEA, NAUSEA Nursing Triage Summary: pt c/o bilat abd pain started at 0400 this am has been vomiting feels nauseated now has headache from vomiting History of Present Illness The patient is a 51 year old female who presents to the Emergency Room with complaints of multiple episodes of vomiting beginning at 4am this morning. The patient is also experiencing abdominal pain, a headache, nausea, and diarrhea. She notes two episodes of diarrhea this morning which began a few hours after the vomiting did. The patient has been urinating less than normal today. She notes that she was watching a child with abdominal complaints these past 2 weeks but otherwise no contact with people with similar symptoms. She notes her period was abnormal and very heavy this month. The patient denies chest pain. She has a history of an appendectomy. Source of History: patient Onset: 4am this morning Position: other (global) Quality: other (vomiting) Timing: other (episodes) Associated Symptoms: + abdominal pain, + diarrhea, + headache, + nausea, + urinary symptoms (less frequent) Review of Systems See HPI for pertinent positives & negatives. A total of 10 systems reviewed and were otherwise negative. Past Medical & Surgical Medical Problems: (1) Asthma, Unspecified (2) Chest pain (3) Cholelithiasis Nos (4) Esophageal Reflux (5) Int Hemrrhoid W Comp Nec (6) Paresthesia (7) Supraventricular tachycardia Family History Cancer Diabetes mellitus Heart disease Hypertension Hypothyroidism Lung disease Social History Smoking Status: Never Smoker Alcohol Use: occasionally Marital Status: Housing Status: lives with family Occupation Status: employed Current/Historical Medications Scheduled Epinephrine (Epipen), 0.3 MG IM UD Ondasetron Odt (Zofran Odt), 4 MG SL Q6H Scheduled PRN Albuterol Hfa (Ventolin Hfa), 1-2 PUFFS INH Q4 PRN for Shortness of Breath Montelukast Sod (Montelukast Sodium), 10 MG PO DAILY PRN for PRN Ranitidine (Zantac), 150 MG PO QPM PRN for PRN Allergies Coded Allergies: Azithromycin (Verified Allergy, Severe, throat swelling, 03/27/17) Adhesives (Verified Allergy, Mild, RASH, 03/27/17) Latex (Verified Allergy, Mild, RASH, 03/27/17) Propoxyphene (Verified Allergy, Mild, RASH, 03/27/17) Amoxicillin (Unverified Allergy, Unknown, UNKNOWN, 03/27/17) Clavulanic Acid (Unverified Allergy, Unknown, UNKNOWN, 03/27/17) Penicillins (Verified Allergy, Unknown, AUGMENTIN, 03/27/17) Morphine (Unverified Adverse Reaction, Mild, SYNCOPE, 03/27/17) Physical Exam Vital Signs Date Time Temp Pulse Resp B/P Pulse Ox O2 Delivery O2 Flow Rate FiO2 03/27/17 16:11 83 12 116/74 100 03/27/17 15:00 81 19 118/80 96 Room Air 03/27/17 14:51 81 03/27/17 13:14 36.3 86 18 148/88 96 Room Air Physical Exam GENERAL: Patient is awake, alert, and in no acute distress. Patient is resting comfortably and showing no signs of anxiety EYES: The conjunctivae are clear. The pupils are round and reactive. EARS, NOSE, MOUTH AND THROAT: The nose is without any evidence of any deformity. Mucous membranes are moist tongue is midline NECK: The neck is nontender and supple. RESPIRATORY: Normal respiratory effort is noted there is no evidence of wheezing rhonchi or rales CARDIOVASCULAR: Regular rate and rhythm noted there no murmurs rubs or gallops normal S1 normal S2 GASTROINTESTINAL: The abdomen is soft. Bowel sounds are present in all quadrants. Abdomen is mildly distended, no signs of tenderness or guarding. MUSCULOSKELETAL/EXTREMITIES: There is no evidence of gross deformity full range of motion is noted in the hips and shoulders SKIN: There is no obvious evidence of any rash. There are no petechiae, pallor or cyanosis noted. NEUROLOGIC: Patient is awake alert and oriented x3 strength is symmetric patellar reflexes are 2+ bilaterally Medical Decision & Procedures ER Provider Diagnostic Interpretation: X-ray results as stated below per interpretation by me and the radiologist. ABDOMEN 2VIEW W/PA CHEST RTN CLINICAL HISTORY: ABDOMINAL PAIN/GI pain COMPARISON STUDY: 01/10/2017 FINDINGS: The soft tissues, psoas shadows, renal outlines and intestinal gas pattern appear normal. There is no evidence for bowel obstruction. There is no evidence for free intraperitoneal air. No abnormal abdominal calcifications are seen. A frontal view of the chest was performed and is unremarkable. IMPRESSION: Normal study. Electronically signed by: Tucker Escalante M.D. 03/27/2017 2:41 PM Dictated Date/Time: 03/27/2017 2:40 PM Laboratory Results 03/27/17 13:50 Red Blood Count 5.15, Mean Corpuscular Volume 89.7, Mean Corpuscular Hemoglobin 30.9, Mean Corpuscular Hemoglobin Concent 34.4, Mean Platelet Volume 10.5, Neutrophils (%) (Auto) 84.5, Lymphocytes (%) (Auto) 12.0, Monocytes (%) (Auto) 2.8, Eosinophils (%) (Auto) 0.3, Basophils (%) (Auto) 0.2, Neutrophils # (Auto) 8.70, Lymphocytes # (Auto) 1.23, Monocytes # (Auto) 0.29, Eosinophils # (Auto) 0.03, Basophils # (Auto) 0.02 03/27/17 13:50 Test 03/27/17 13:50 White Blood Count 10.29 K/uL (4.8-10.8) Red Blood Count 5.15 M/uL (4.2-5.4) Hemoglobin 15.9 g/dL (12.0-16.0) Hematocrit 46.2 % (37-47) Mean Corpuscular Volume 89.7 fL (80-100) Mean Corpuscular Hemoglobin 30.9 pg (25-34) Mean Corpuscular Hemoglobin Concent 34.4 g/dl (32-36) Platelet Count 250 K/uL (130-400) Mean Platelet Volume 10.5 fL (7.4-10.4) Neutrophils (%) (Auto) 84.5 % Lymphocytes (%) (Auto) 12.0 % Monocytes (%) (Auto) 2.8 % Eosinophils (%) (Auto) 0.3 % Basophils (%) (Auto) 0.2 % Neutrophils # (Auto) 8.70 K/uL (1.4-6.5) Lymphocytes # (Auto) 1.23 K/uL (1.2-3.4) Monocytes # (Auto) 0.29 K/uL (0.11-0.59) Eosinophils # (Auto) 0.03 K/uL (0-0.5) Basophils # (Auto) 0.02 K/uL (0-0.2) RDW Standard Deviation 40.7 fL (36.4-46.3) RDW Coefficient of Variation 12.4 % (11.5-14.5) Immature Granulocyte % (Auto) 0.2 % Immature Granulocyte # (Auto) 0.02 K/uL (0.00-0.02) Anion Gap 6.0 mmol/L (3-11) Est Creatinine Clear Calc Drug Dose 76.7 ml/min Estimated GFR () 67.8 Estimated GFR (Non- 58.5 BUN/Creatinine Ratio 13.4 (10-20) Calcium Level 9.2 mg/dl (8.5-10.1) Total Bilirubin 0.4 mg/dl (0.2-1) Direct Bilirubin < 0.1 mg/dl (0-0.2) Aspartate Amino Transf (AST/SGOT) 19 U/L (15-37) Alanine Aminotransferase (ALT/SGPT) 35 U/L (12-78) Alkaline Phosphatase 64 U/L (45-117) Total Protein 7.6 gm/dl (6.4-8.2) Albumin 3.9 gm/dl (3.4-5.0) Lipase 120 U/L (73-393) Human Chorionic Gonadotropin, Qual NEG (NEG) Laboratory results per my review. Medications Administered Medications (Trade) Dose Ordered Sig/Petar Route Start Time Stop Time Status Last Admin Dose Admin Ketorolac Tromethamine (Toradol Inj) 30 mg NOW STAT IV 03/27/17 13:33 03/27/17 13:35 DC 03/27/17 13:56 30 MG Ondansetron HCl 4 mg 4 mg NOW STAT IV 03/27/17 13:33 03/27/17 13:35 DC 03/27/17 13:56 4 MG Sodium Chloride (Nss 1000ml) 2,000 ml @ 999 mls/hr Q2H1M STAT IV 03/27/17 13:33 03/27/17 15:33 DC 03/27/17 13:56 999 MLS/HR ED Course 1327: The patient was evaluated in room B6. A complete history and physical examination were performed. 1333: Sodium Chloride 2,000 ml @ 999 mls/hr IV, Zofran Inj 4 mg IV, Toradol Inj 30 mg IV. 1550: Upon reevaluation, the patient is hemodynamically stable. I discussed the results and treatment plan with her. She verbalized agreement of the treatment plan. She was discharged home. Medical Decision Differential diagnosis: Etiologies such as gastroenteritis, food borne illness, infections, appendicitis , diverticulitis, inflammatory bowel disease, obstruction, GI bleed, biliary pathology, as well as others were entertained. Nursing notes reviewed. The patient is a 51-year-old female who presented to the emergency department for an evaluation of nausea vomiting and diarrhea. Patient states her symptoms began less than 24 hours ago. Her physical exam was not consistent with an acute surgical abdomen. She did not have any specific guarding or localized tenderness. The patient was treated with IV fluids IV pain medicine IV antiemetics. On subsequent reevaluation she was feeling much better. The patient was encouraged to rest and avoid any strenuous activity. She was also encouraged to continue all medications as prescribed. She was also encouraged to follow-up with her primary care physician this week for reevaluation. She was also given instructions to return to the emergency department if symptoms change worsen or if the need arises. Impression Primary Impression: Nausea Additional Impressions: Vomiting Diarrhea Dehydration Scribe Attestation The scribe's documentation has been prepared under my direction and personally reviewed by me in its entirety. I confirm that the note above accurately reflects all work, treatment, procedures, and medical decision making performed by me. Departure Information Dispostion Home / Self-Care Prescriptions Ondasetron Odt (ZOFRAN ODT) 4 Mg Tab 4 MG SL Q6H for Nausea, #15 TAB Prov: Kalpesh Link, DO 03/27/17 Referrals No Doctor, Assigned (PCP) Forms Call Back Authorization, HOME CARE DOCUMENTATION FORM, IMPORTANT VISIT INFORMATION, Work Instructions Patient Instructions ED Vomiting Diarrhea Nonspecific Ad, My [facility] [employer] Additional Instructions Continue to use Motrin and Tylenol as directed for pain. Continue drinking drink plenty clear liquids including Pedialyte and Gatorade. Follow-up with your family doctor soon as possible. Return to the emergency department immediately if symptoms change worsen or the need arises. Problem Qualifiers Additional Impressions: Vomiting Vomiting type: unspecified Vomiting Intractability: non-intractable Nausea presence: with nausea Qualified Codes: R11.2 - Nausea with vomiting, unspecified Diarrhea Diarrhea type: unspecified type Qualified Codes: R19.7 - Diarrhea, unspecified
[2017-03-27 14:10] LABS: BASO % 0.2 %; BASO ABS # 0.02 K/uL (0-0.2); COMPLETE YES; EOS % 0.3 %; HEMATOCRIT 46.2 % (37-47); IG% 0.2 %; LYMPH ABS # 1.23 K/uL (1.2-3.4); MEAN CELL VOLUME 89.7 fL (80-100); MEAN CORPUSCULAR HEMOGLOBIN 30.9 pg (25-34); MEAN CORPUSCULAR HGB CONC 34.4 g/dl (32-36); MEAN PLATELET VOLUME 10.5 fL (7.4-10.4); MONO % 2.8 %; NEUT % 84.5 %; PLATELET COUNT 250 K/uL (130-400); RED BLOOD COUNT 5.15 M/uL (4.2-5.4); WHITE BLOOD COUNT 10.29 K/uL (4.8-10.8)
[2017-03-27 14:27] LABS: ALT/SGPT 35 U/L (12-78); AST/SGOT 19 U/L (15-37); BLOOD UREA NITROGEN 15 mg/dl (7-18); BUN/CREATININE RATIO 13.4 (10-20); CALCIUM 9.2 mg/dl (8.5-10.1); CARBON DIOXIDE 28 mmol/L (21-32); CHLORIDE 107 mmol/L (98-107); GLUCOSE 106 mg/dl (70-99); POTASSIUM 4.6 mmol/L (3.5-5.1); SODIUM 141 mmol/L (136-145)
[2017-03-27 14:30] LABS: ALKALINE PHOSPHATASE 64 U/L (45-117)
[2017-03-27 14:40] LABS: PREG INTERNAL NEGATIVE QC NEG CLEAR BACKGROUND; PREG INTERNAL POSITIVE QC POS CONTROL LINE
--- NOTE | 2017-03-27 14:42 | DIAGNOSTIC IMAGING REPORT ---
ABDOMEN 2VIEW W/PA CHEST RTN CLINICAL HISTORY: ABDOMINAL PAIN/GI pain COMPARISON STUDY: 01/10/2017 FINDINGS: The soft tissues, psoas shadows, renal outlines and intestinal gas pattern appear normal. There is no evidence for bowel obstruction. There is no evidence for free intraperitoneal air. No abnormal abdominal calcifications are seen. A frontal view of the chest was performed and is unremarkable. IMPRESSION: Normal study. Electronically signed by: Tucker Escalante M.D. 03/27/2017 2:41 PM Dictated Date/Time: 03/27/2017 2:40 PM
[2017-03-27] MEDS ORDERED: ONDA4TAB10 SL (15:47)
[2017-03-27 16:11] VITALS: BP 116/74; PULSE 83; O2SAT 100
[2017-03-27 19:00] LABS: URINE APPEARANCE CLOUDY (CLEAR); URINE BILIRUBIN NEG (NEG); URINE COLOR DK YELLOW; URINE EPITHELIAL CELL AUTO >30 /lpf (0-5); URINE NITRITE NEG (NEG); URINE PH >= 9.0 (4.5-7.5); URINE SPECIFIC GRAVITY 1.023 (1.000-1.030); UROBILINOGEN NEG (NEG)
[2017-03-27 19:15] LABS: MANUAL MICROSCOPIC REQUIRED? NO; REVIEW REQ? YES; SULFASALICYLIC ACID NEG (NEG)
[2017-07-12] MEDS ORDERED: CLR10 PO (09:14)
[2017-07-12] MEDS ORDERED: CALC1TAB25 PO (09:14)
[2017-07-12] MEDS ORDERED: NAPR1TAB9 PO (09:14)
[2017-07-20] MEDS ORDERED: OXYC-57 PO (10:39)
== END 2017-03-27 16:16 | disposition home or self-care (01) ==
LOC: C.EDB 13:14
DX: R11.2 Nausea with vomiting, unspecified (principal); R19.7 Diarrhea, unspecified; E86.0 Dehydration; J45.909 Unspecified asthma, uncomplicated; K21.9 Gastro-esophageal reflux disease without esophagitis; K64.8 Other hemorrhoids; I47.1 Supraventricular tachycardia; Z83.3 Family history of diabetes mellitus; Z83.49 Family history of other endocrine, nutritional and metabolic diseases

== ENCOUNTER → 2017-04-25 | Outpatient (CLI) | payer BC ==
[~2017-04-25] MED LIST changes: +CALC1TAB25 PO; -CHOL1CHW10 PO; +CLR10 PO; +CYCL10TA6 PO; +DIPH25CA65 PO; -MULT-506 PO; +NAPR1TAB9 PO; +ONDA4TAB10 SL; +OXYC-57 PO; +OXYC1TAB3 PO
--- NOTE | 2017-04-26 09:05 | MAMMOGRAPHY REPORT ---
BILATERAL DIGITAL SCREENING MAMMOGRAM TOMOSYNTHESIS WITH CAD: 04/25/2017 CLINICAL HISTORY: Routine screening. Patient has no complaints. TECHNIQUE: Breast tomosynthesis in addition to standard 2D mammography was performed. Current study was also evaluated with a Computer Aided Detection (CAD) system. COMPARISON: Comparison is made to exams dated: 04/14/2016 mammogram, 11/11/2015 mammogram, 10/09/2014 ma mmogram, 08/08/2013 mammogram - [facility], 04/22/2009, and 04/17/2008. BREAST COMPOSITION: There are scattered areas of fibroglandular density in both breasts. FINDINGS: There is a newly visualized 7 mm mass in the 6:30 to 7:00 middle one third of the right br east, for which additional targeted ultrasound and possible additional mammographic views is recommen ded. There is evidence of prior bilateral reduction mammoplasty. Stable focal asymmetry in the left upper outer quadrant. No other suspicious mass, architectural distortion or cluster of microcalcifications is seen. IMPRESSION: ACR BI-RADS CATEGORY 0: INCOMPLETE EVALUATION: NEED ADDITIONAL IMAGING EVALUATION The newly visualized 7 mm mass in the 6:30 to 7:00 middle one third of the right breast needs additio nal evaluation. The patient will be called to schedule an appointment. Approximately 10% of breast cancers are not detected with mammography. A negative mammographic report should not delay biopsy if a clinically suggestive mass is present. Shira Beavers M.D. ay/:04/25/2017 17:31:59 Manager Bilingual: Missy STRATTON(Maged)(Therese)(WAYNE), [facility] letter sent: Addl Imaging 0 BI-RADS Code: ACR BI-RADS Category 0: Incomplete Evaluation: Need Additional Imaging Evaluation
== END | disposition home or self-care (01) ==
LOC: C.MAMM 11:16
PROVIDERS: ATTEND Family Medicine
DX: Z12.31 Encounter for screening mammogram for malignant neoplasm of breast (principal); N63 Unspecified lump in breast

== ENCOUNTER → 2017-05-07 | Outpatient (CLI) | payer BC | END | disposition home or self-care (01) | LOC: C.RDSM 10:43 | PROVIDERS: ATTEND Physical Medicine & Rehabilitation Sports Medicine | DX: M25.551 Pain in right hip (principal); M25.561 Pain in right knee; M25.511 Pain in right shoulder; M25.512 Pain in left shoulder; M25.562 Pain in left knee ==

== ENCOUNTER → 2017-05-09 | Outpatient (CLI) | payer BC ==
--- NOTE | 2017-05-09 12:33 | MAMMOGRAPHY REPORT ---
ULTRASOUND OF RIGHT BREAST: 05/09/2017 CLINICAL HISTORY: Callback from screening mammogram for right lower outer quadrant breast mass. COMPARISON: Comparison is made to exams dated: 04/25/2017 mammogram, 04/14/2016 ultrasound, 04/14/2016 mammogram, 11/11/2015 mammogram, 10/09/2014 mammogram, and 08/08/2013 mammogram - [facility] enter. TECHNIQUE: Real-time targeted ultrasound of the right breast was performed. FINDINGS: Real-time, high resolution targeted ultrasound was performed of the area of the mammographic mass in the right upper outer quadrant. In the right breast at 6:30, 11 cm from the nipple, there is a hypoe choic solid-appearing 8 x 6 x 7 mm mass. The margins are not circumscribed. This corresponds with t he new mammographic mass and is indeterminant. Recommend ultrasound guided core needle biopsy for fu rther evaluation. In the right breast at 8:00, 11 cm from the nipple, there is an oval parallel 5 x 2 x 3 mm mass, whic h is partially anechoic and partially hypoechoic. This is incidentally noted and may represent a com plicated cyst although a cystic and solid mass is not excluded. Recommend ultrasound guided aspirati on versus biopsy for further evaluation. IMPRESSION: ACR BI-RADS CATEGORY 4: SUSPICIOUS - FOLLOW-UP RECOMMENDED 1. Hypoechoic 8 mm mass in the right breast at 6:30 on ultrasound, which corresponds with the new ma mmographic mass. The mass is indeterminate and ultrasound-guided core needle biopsy is recommended f or further evaluation. 2. Incidental partially anechoic and partially hypoechoic 5 mm mass in the right 8:00 breast on ultr asound. This may represent a complicated cyst although a mixed cystic and solid mass is not excluded . Recommend ultrasound-guided aspiration versus biopsy for further evaluation. A phone call was made to the physician's office to confirm faxed results were received. The patient was verbally notified of the results. She tentatively scheduled the biopsies before leaving the depa rtment. Mirna Knight M.D. /:05/09/2017 09:22:38 Rough And Truing Machine Operator: Mirna Knight MD, [facility] letter sent: Abnormal / BI-RADS Code: ACR BI-RADS Category 4: Suspicious
== END | disposition home or self-care (01) ==
LOC: C.MAMM 08:54
PROVIDERS: ATTEND Family Medicine
DX: N63 Unspecified lump in breast (principal)

== ENCOUNTER → 2017-05-14 | Outpatient (CLI) | payer BC ==
--- NOTE | 2017-05-14 13:30 | Discharge Instructions ---
Discharge Instructions Procedure Procedure Date: May 14, 2017. Reason for visit: Right Masses X 2. Discharge Discharge Date: May 14, 2017. Discharge Diagnosis: post right breast ultrasound guided core biopsy x 2 Instructions Activity Recommendations: Additional Limitations (see below) Return to School/Work: no limitations Recommended Home Diet: No Limitations Provider Instructions: ACTIVITY RECOMMENDATIONS: * No lifting, pushing, pulling or exercising the affected side for three days. RETURN TO SCHOOL/WORK: * You may return to work/school after the procedure, but do not perform any strenuous activities for 24 to 48 hours. MEDICATIONS: * Tylenol (two 325 mg) every four to six hours if needed for mild pain (if not allergic to Tylenol). DIET: * Resume previous diet. SPECIAL CARE INSTRUCTIONS: * Keep biopsy site dry for 24 hours. May shower after 24 hours, but do not soak (bathe) incision. * May remove Tegaderm (plastic patch) tomorrow AFTER showering. * Leave the steri-strips on for one week. Allow the steri-strips to fall off by themselves. If not off after one week, you may remove them. You may place a Bandaid crosswise over the strips, if desired. * Apply ice 10 minutes on and 10 minutes off as needed. * Wear a bra at bedtime to sleep more comfortably for 2-3 days. * Your referring physician should have the results after approximately 5 to 7 business days. * Call for unusual bleeding, fever, drainage, etc or if you have any questions call [phone] during normal business hours or after hours call Dr Beavers, . FOLLOW UP VISIT: Follow-up with Referring Physician as scheduled. Allergies Coded Allergies: Azithromycin (Verified Allergy, Severe, throat swelling, 03/27/17) Adhesives (Verified Allergy, Mild, RASH, 03/27/17) Latex (Verified Allergy, Mild, RASH, 03/27/17) Propoxyphene (Verified Allergy, Mild, RASH, 03/27/17) Amoxicillin (Unverified Allergy, Unknown, UNKNOWN, 03/27/17) Clavulanic Acid (Unverified Allergy, Unknown, UNKNOWN, 03/27/17) Penicillins (Verified Allergy, Unknown, AUGMENTIN, 03/27/17) Morphine (Unverified Adverse Reaction, Mild, SYNCOPE, 03/27/17) Dallas Demarco Recommendations: Call your doctor if: * Temperature above 101 degrees * Pain not relieved by pain medicine ordered * There is increased drainage or redness from any incision * You have any unanswered questions or concerns. Your Doctors Instructions noted above were prepared by provider Shira Beavers. Patient Signature Section: Patient Instructions Signature Page Tiffanie Ontiveros Patient (or Guardian) Signature/Date: I have read and understand the instructions given to me by my caregivers. Caregiver/RN/Doctor Signature/Date: The above-named patient and/or guardian has received patient instructions on this date. + Original Patient Signature Page (only) stays with chart. Please make copy for patient.
--- NOTE | 2017-05-14 14:30 | MAMMOGRAPHY REPORT ---
UNILATERAL RIGHT DIGITAL DIAGNOSTIC MAMMOGRAM TOMOSYNTHESIS: 05/14/2017 CLINICAL HISTORY: Status post ultrasound guided core biopsy 2 in the right breast. Please refer to the report from right breast ultrasound guided core biopsy performed at the same time for full detail. IMPRESSION: POST PROCEDURE IMAGING FOR MARKER PLACEMENT Please refer to the report from right breast ultrasound guided core biopsy performed at the same time for full detail. Approximately 10% of breast cancers are not detected with mammography. A negative mammographic report should not delay biopsy if a clinically suggestive mass is present. Shira Beavers M.D. ay/:05/14/2017 13:29:00 Electric Meter Tester Helper: Zully STRATTON(Maged)(M), [facility] BI-RADS Code: Post Procedure Imaging For Marker Placement
--- NOTE | 2017-05-14 14:30 | MAMMOGRAPHY REPORT ---
ULTRASOUND GUIDED BIOPSY: 05/14/2017 CLINICAL HISTORY: Indeterminate solid mass in the 6:30 right breast and possible solid versus cystic mass in the 8:00 right breast. Patient presents for ultrasound-guided core biopsy 2. Please refer to the report from right breast ultrasound guided core biopsy performed at the same time for full detail. IMPRESSION: ULTRASOUND GUIDED BIOPSY Please refer to the report from right breast ultrasound guided core biopsy performed at the same time for full detail. Shira Beavers M.D. ay/:05/14/2017 13:51:50 Hvac Maintenance Technician: Zully STRATTON(Maged)(Therese), [facility]
--- NOTE | 2017-05-14 16:06 | MAMMOGRAPHY REPORT ---
THIS REPORT HAS BEEN AMENDED. MULTIPLE ULTRASOUND GUIDED BIOPSIES RIGHT BREAST: 05/14/2017 CLINICAL HISTORY: 52 year-old woman presents for ultrasound-guided core biopsy 2 in the right 6:30 a nd 8:00 axes. She has a history of reduction mammoplasty. COMPARISON: Comparison is made to exams dated: 05/14/2017 mammogram, 05/09/2017 ultrasound, 04/25/2017 m ammogram, 04/14/2016 ultrasound, 04/14/2016 mammogram, and 11/11/2015 mammogram - [facility] e[facility]. PATIENT CONSENT: The procedure, risks and benefits were discussed with the patient and informed writt en consent was obtained. Specific risks to this procedure include: bleeding, infection, puncture of a djacent structure, nontarget biopsy, sampling error, pain, metal allergy and medication reaction. PROCEDURE DESCRIPTION: Prior to the procedure, targeted ultrasound was performed in the right axilla which demonstrates 3 morphologically normal lymph nodes. A time out was performed and the right breast was agreed as the site of biopsy. The skin was prepped and draped in the usual sterile fashion. First the lobulated solid mass in the 6:30 right breast was identified and targeted for biopsy. Subcutaneous and intraparenchymal 1% buffered lidocaine with an d without epinephrine was administered as local anesthesia. A skin incision was made. Through the in cision, 6 samples were taken with a 14 gauge Achieve biopsy device. A ribbon-shaped metallic marker w as placed at the biopsy site. Hemostasis was achieved after manual compression. The patient tolerated the procedure well and there was no immediate complication. Then the small hypoechoic solid versus cystic mass, possibly intraductal in nature, in the 8:30 right breast was identified and targeted for biopsy. Subcutaneous and intraparenchymal 1% buffered lidocai ne with and without epinephrine was administered as local anesthesia. A skin incision was made. Thro ugh the incision, 5 samples were taken with a 14 gauge Achieve biopsy device. A wing-shaped metallic marker was placed at the biopsy site. Hemostasis was achieved after manual compression. The patient t olerated the procedure well and there was no immediate complication. All of the samples were sent to the pathology department in appropriately labeled containers. Post procedure right CC and ML tomosynthesis images were obtained. 2 new metallic biopsy markers are seen in the right breast and no significant postbiopsy hematoma. The ribbon-shaped marker aligns wi th the 8 mm mass in question based on the screening mammogram. IMPRESSION: ULTRASOUND GUIDED BIOPSY Status post ultrasound-guided core needle biopsy 2 in the right breast 6:30 and 8:00 axes. Metallic biopsy markers were placed at the site of each biopsy. The patient will receive notification of the biopsy results from her referring physician. Shira Beavers M.D. ay/:05/14/2017 14:41:23 Drilling Field Specialist: Zully BANDA)(Therese), [facility] AMENDMENT: 05/25/2017 Shira Beavers M.D. Pathology results from the ultrasound-guided core needle biopsy of an 8 mm mass in the 6:30 axis of t he right breast, newly visualized mammographically, yielded benign breast tissue with nodular fibrosi s. In the comment section, this lesion consists of benign-appearing breast tissue. A minority of th e tissue shows nodular, stromal fibrosis. These fragments of tissue could be consistent with a porti on of a fibroadenoma or a nodular area of fibrocystic change. The pathology results are considered d iscordant with the imaging appearance of a new mass and therefore further evaluation with a repeat bi opsy or surgical excisional biopsy are recommended. These pathology results and options were discussed with the patient at 12:20 PM on 05/25/2017 and she would prefer for a repeat biopsy, using a slightly larger biopsy needle with vacuum assistance. The patient will return to our department on 05/29/2017 at 2:15 PM. The pathology results from the ultrasound guided core biopsy of a 5 mm mass in the 8:00 right breast yielded fibroadipose tissue with a focal cyst. Those pathology results are considered concordant and no further follow-up is needed in the 8:00 axis.
== END | disposition home or self-care (01) ==
LOC: C.MAMM 12:32
PROVIDERS: ATTEND Family Medicine
DX: N63 Unspecified lump in breast (principal); N64.89 Other specified disorders of breast

== ENCOUNTER → 2017-05-28 | Outpatient (CLI) | payer BC ==
--- NOTE | 2017-05-28 10:34 | DIAGNOSTIC IMAGING REPORT ---
LOWER EXT JOINT WITHOUT CLINICAL HISTORY: SCOTT HIP PAIN hip pain TECHNIQUE: Multi axial MRI acquisition COMPARISON STUDY: None FINDINGS: Signal characteristics of the right hip are unremarkable. Signal characteristics of the left hip indicate a small subchondral/osteochondral defect of the superior central aspect of the left hip. This has maximum surface dimensions of 1.5 cm in anterior to posterior dimension and transaxially measurements of 8 mm. The overlying articular surfaces appears to be generally intact. No significant loose bodies within limitations of resolution of the scanner are present. There is no evidence for acetabular protrusion. No additional bone marrow replacing process is identified. Uterus assumes a partial bicornuate configuration. Junctional zone of the uterus appears to be intact. Bladder is midline. Surrounding soft tissue structures of the hip including joint musculature is unremarkable. There is no bone marrow replacing process other than that noted. No mass or collection within the soft tissues appreciated. IMPRESSION: 1. Focal osteochondral lesion superior central left femoral head measuring 1.5 x 1.2 x 6 mm in terms of depth 2. No definite defect of the articular surface. 3. No significant joint effusion. No loose bodies within resolution limitations of this scanner 4. The remainder of the study is unremarkable. The above report was generated using voice recognition software. It may contain grammatical, syntax or spelling errors. Electronically signed by: Tucker Escalante M.D. 05/28/2017 10:33 AM Dictated Date/Time: 05/28/2017 10:26 AM
== END | disposition home or self-care (01) ==
LOC: C.OPENMRI 08:55
PROVIDERS: ATTEND Physical Medicine & Rehabilitation Sports Medicine
DX: M25.552 Pain in left hip (principal); M25.551 Pain in right hip

== ENCOUNTER → 2017-05-29 | Outpatient (CLI) | payer BC ==
--- NOTE | 2017-05-29 15:02 | Discharge Instructions ---
Discharge Instructions Procedure Procedure Date: May 29, 2017. Reason for visit: Rt Mass. Discharge Discharge Date: May 29, 2017. Discharge Diagnosis: post right breast ultrasound guided vacuum assisted core biopsy Instructions Activity Recommendations: Additional Limitations (see below) Return to School/Work: no limitations Recommended Home Diet: No Limitations Provider Instructions: ACTIVITY RECOMMENDATIONS: * No lifting, pushing, pulling or exercising the affected side for three days. RETURN TO SCHOOL/WORK: * You may return to work/school after the procedure, but do not perform any strenuous activities for 24 to 48 hours. MEDICATIONS: * Tylenol (two 325 mg) every four to six hours if needed for mild pain (if not allergic to Tylenol). DIET: * Resume previous diet. SPECIAL CARE INSTRUCTIONS: * Keep biopsy site dry for 24 hours. May shower after 24 hours, but do not soak (bathe) incision. * May remove Tegaderm (plastic patch) tomorrow AFTER showering. * Leave the steri-strips on for one week. Allow the steri-strips to fall off by themselves. If not off after one week, you may remove them. You may place a Bandaid crosswise over the strips, if desired. * Apply ice 10 minutes on and 10 minutes off as needed. * Wear a bra at bedtime to sleep more comfortably for 2-3 days. * Your referring physician should have the results after approximately 5 to 7 business days. * Call for unusual bleeding, fever, drainage, etc or if you have any questions call [phone] during normal business hours or after hours call Dr Beavers, . FOLLOW UP VISIT: Follow-up with Referring Physician as scheduled. Allergies Coded Allergies: Azithromycin (Verified Allergy, Severe, throat swelling, 03/27/17) Adhesives (Verified Allergy, Mild, RASH, 03/27/17) Latex (Verified Allergy, Mild, RASH, 03/27/17) Propoxyphene (Verified Allergy, Mild, RASH, 03/27/17) Amoxicillin (Unverified Allergy, Unknown, UNKNOWN, 03/27/17) Clavulanic Acid (Unverified Allergy, Unknown, UNKNOWN, 03/27/17) Penicillins (Verified Allergy, Unknown, AUGMENTIN, 03/27/17) Morphine (Unverified Adverse Reaction, Mild, SYNCOPE, 03/27/17) Dallas Demarco Recommendations: Call your doctor if: * Temperature above 101 degrees * Pain not relieved by pain medicine ordered * There is increased drainage or redness from any incision * You have any unanswered questions or concerns. Your Doctors Instructions noted above were prepared by provider Shira Beavers. Patient Signature Section: Patient Instructions Signature Page Tiffanie Ontiveros Patient (or Guardian) Signature/Date: I have read and understand the instructions given to me by my caregivers. Caregiver/RN/Doctor Signature/Date: The above-named patient and/or guardian has received patient instructions on this date. + Original Patient Signature Page (only) stays with chart. Please make copy for patient.
--- NOTE | 2017-05-29 15:51 | MAMMOGRAPHY REPORT ---
UNILATERAL RIGHT DIGITAL DIAGNOSTIC MAMMOGRAM TOMOSYNTHESIS: 05/29/2017 CLINICAL HISTORY: Status post ultrasound-guided vacuum-assisted core biopsy to resolution of a hypoec hoic solid appearing mass in the 6:30 right breast. Previous ultrasound guided core biopsy yielded a small area of nodular fibrosis and this was felt to be discordant. Please refer to the report from right breast ultrasound-guided core biopsy performed at the same time for full detail. IMPRESSION: POST PROCEDURE IMAGING FOR MARKER PLACEMENT Please refer to the report from right breast ultrasound-guided core biopsy performed at the same time for full detail. Approximately 10% of breast cancers are not detected with mammography. A negative mammographic report should not delay biopsy if a clinically suggestive mass is present. Shira Beavers M.D. ay/:05/29/2017 15:04:22 File Clerk: Francisca BANDA)(M), [facility] BI-RADS Code: Post Procedure Imaging For Marker Placement
--- NOTE | 2017-05-29 15:51 | MAMMOGRAPHY REPORT ---
ULTRASOUND GUIDED BIOPSY RIGHT BREAST: 05/29/2017 CLINICAL HISTORY: 52-year-old female who presents for repeat biopsy of a solid mass in the 6:30 right breast. The initial pathology results yielded benign breast tissue with nodular stromal fibrosis an d this was felt to be discordant for a new mass. COMPARISON: Comparison is made to exams dated: 05/14/2017 mammogram, 05/09/2017 ultrasound, 04/25/2017 m ammogram, 11/11/2015 mammogram, 10/09/2014 mammogram, and 08/08/2013 mammogram - [facility]. PATIENT CONSENT: The procedure, risks and benefits were discussed with the patient and informed writt en consent was obtained. Specific risks to this procedure include: bleeding, infection, puncture of a djacent structure, pain, metal allergy, sampling error, medication reaction and nontarget biopsy. PROCEDURE DESCRIPTION: A time out was performed and the right breast was agreed as the site of biopsy . The skin was prepped and draped in the usual sterile fashion. The solid mass in the 6:[address] with associated ribbon-shaped biopsy marker clip was identified and chosen as target for vacuum-as sisted biopsy. Subcutaneous and intraparenchymal 1% buffered lidocaine, with and without epinephrine , was administered as local anesthesia. A skin incision was made. Through the incision, 6 samples we re taken with a 9 gauge PaeDaeiva vacuum-assisted biopsy device. The mass was biopsied to sonograp hic resolution. Then, a lock shaped metallic marker was placed at the biopsy site. Hemostasis was ac hieved after manual compression. The patient tolerated the procedure well and there was no immediate complication. The samples were sent to the pathology department in an appropriately labeled containe r. Postprocedure right CC and ML tomosynthesis images were obtained. There is a new lock shaped metalli c biopsy marker in the 6:30 middle to posterior right breast, at the site of the biopsied mass. Neit her the mass nor the ribbon-shaped biopsy marker clip denoting the prior ultrasound guided core biops y are identified on the images any more, concordant with the sonographic findings during the biopsy o f sampling to resolution. No significant postbiopsy hematoma is identified. IMPRESSION: ULTRASOUND GUIDED BIOPSY Status post ultrasound guided vacuum assisted core biopsy to resolution of an indeterminate solid mas s in the 6:30 right breast. Both the mass and the ribbon-shaped clip from the prior biopsy are no lo nger identified on the postprocedure images. A new lock shaped biopsy marker clip is in place. The patient will receive notification of the results from her referring physician. Shira Beavers M.D. ay/:05/29/2017 15:25:33 Sisal Picker: Francisca BANDA)(Therese), [facility] [address]
== END | disposition home or self-care (01) ==
LOC: C.MAMM 14:07
PROVIDERS: ATTEND Family Medicine
DX: N63 Unspecified lump in breast (principal); D24.1 Benign neoplasm of right breast

== ENCOUNTER → 2017-05-31 | Outpatient (CLI) | payer BC ==
--- NOTE | 2017-05-31 16:15 | DIAGNOSTIC IMAGING REPORT ---
LEFT HAND MIN 3 VIEWS ROUTINE CLINICAL HISTORY: Polyarthralgia. Bilateral hand pain. Fatigue. COMPARISON: None FINDINGS: A ring is present on the fourth digit. No fracture is identified within the left hand. No erosions are identified. Carpal bones are intact. Joint spaces are preserved. IMPRESSION: Unremarkable left hand radiographs. No radiographic evidence of an erosive/inflammatory arthropathy. Electronically signed by: Chase Dorsey M.D. 05/31/2017 4:14 PM Dictated Date/Time: 05/31/2017 4:12 PM
--- NOTE | 2017-05-31 16:15 | DIAGNOSTIC IMAGING REPORT ---
RIGHT HAND MIN 3 VIEWS ROUTINE HISTORY: 52 years-old Female M25.50 [id number] Bilateral hand pain, acute without reported trauma. COMPARISON: Left hand radiographs of same day TECHNIQUE: 3 views of the right hand FINDINGS: There is no acute fracture, dislocation or significant degenerative changes. There is minimal first carpometacarpal osteoarthritis present. No evidence of erosive arthropathy, focal soft tissue swelling or radiopaque foreign body. IMPRESSION: 1. No acute fracture or dislocation. 2. Mild degenerative changes of the first carpal metacarpal joint. The above report was generated using voice recognition software. It may contain grammatical, syntax or spelling errors. Electronically signed by: Sai Powell M.D. 05/31/2017 4:14 PM Dictated Date/Time: 05/31/2017 4:12 PM
[2017-05-31 17:57] LABS: RHEUMATOID FACTOR < 10.0 U/mL (0-15); TOTAL IRON BINDING CAPACITY 327 mcg/dl (250-450)
[2017-05-31 18:17] LABS: LYME DISEASE AB IGG NEG (NEG); LYME DISEASE AB IGM NEG (NEG)
[2017-06-09 02:19] LABS: ANA SCREEN NEGATIVE (NEGATIVE); DNA ds CRITHIDIA POSITIVE (NEGATIVE); PARVOVIRUS IgG INDEX 6.1 (<0.9); PARVOVIRUS IgM INDEX 0.2 (<0.9); Rheumatoid Factor 13 IU/mL (<14); SSB Ab <1.0 NEG AI (<1.0 NEGATIVE); Scleroderma Ab <1.0 NEG AI (<1.0 NEGATIVE); Sm/RNP <1.0 NEG AI (<1.0 NEGATIVE)
[2017-06-11 11:51] LABS: DNA ds CRITHIDIA TITER 1:10 (<1:10)
== END | disposition home or self-care (01) ==
LOC: C.RAD1850 15:38
PROVIDERS: ATTEND Internal Medicine Rheumatology
DX: M25.50 Pain in unspecified joint (principal); M79.641 Pain in right hand; M79.642 Pain in left hand; R53.83 Other fatigue

== ENCOUNTER → 2017-06-26 | Outpatient (CLI) | payer BC | END | disposition home or self-care (01) | LOC: C.PAPS 13:49 | PROVIDERS: ATTEND Obstetrics & Gynecology | DX: Z01.411 Encounter for gynecological examination (general) (routine) with abnormal findings (principal); R87.616 Satisfactory cervical smear but lacking transformation zone ==

== ENCOUNTER 2017-07-20 07:00 | Observation (INO) | payer BC ==
[2017-07-12 09:15] VITALS: BMI 44.0
--- NOTE | 2017-07-12 09:52 | PAT Medication Instructions ---
Service Date Jul 12, 2017. Current Home Medication List Albuterol Hfa (Ventolin Hfa), 1-2 PUFFS INH Q4 PRN for Shortness of Breath Calcium W/ Magnesium (Calcium Magnesium 750), 1 TAB PO QAM Epinephrine (Epipen), 0.3 MG IM UD Loratadine (Claritin), 10 MG PO PRN Montelukast Sod (Montelukast Sodium), 10 MG PO DAILY PRN for PRN Naproxen (Aleve), 440 MG PO PRN Ranitidine (Zantac), 150 MG PO QPM PRN for PRN Medication Instructions For Your Scheduled Surgery - Check with surgeon for instructions: Naproxen (Aleve), 440 MG PO PRN - Hold the following medications the morning of surgery: Ranitidine (Zantac), 150 MG PO QPM PRN for PRN Montelukast Sod (Montelukast Sodium), 10 MG PO DAILY PRN for PRN Loratadine (Claritin), 10 MG PO PRN Calcium W/ Magnesium (Calcium Magnesium 750), 1 TAB PO QAM - Take the following medications the morning of surgery with a sip of water: Epinephrine (Epipen), 0.3 MG IM UD (if needed) Albuterol Hfa (Ventolin Hfa), 1-2 PUFFS INH Q4 PRN for Shortness of Breath (if needed) - Take the following medications as scheduled the night before surgery: Ranitidine (Zantac), 150 MG PO QPM PRN for PRN (if needed) Montelukast Sod (Montelukast Sodium), 10 MG PO DAILY PRN for PRN (if needed) Loratadine (Claritin), 10 MG PO PRN (if needed) Epinephrine (Epipen), 0.3 MG IM UD (if needed) Albuterol Hfa (Ventolin Hfa), 1-2 PUFFS INH Q4 PRN for Shortness of Breath (if needed) If you have any questions please call us at [phone] or [phone] or [phone]
[2017-07-20] VITALS (10 sets, daily range): BP systolic 94–140; BP diastolic 56–76; PULSE 76–90; TEMP 36.3–37; O2SAT 94–99; Ht 162.6 cm; Wt 116.5 kg
[~2017-07-20] VITALS: Ht 162.6 cm; Wt 116.5 kg
[~2017-07-20 07:00] MED LIST changes: +CEFAZOLIN 2000 MG/60 ML D5W 50 ML IV SCH; -CYCL10TA6 PO; -DIPH25CA65 PO; +LACTATED RINGER'S 1000ML 1,000 ML IV SCH; -ONDA4TAB10 SL; -OXYC-57 PO; -OXYC1TAB3 PO
[2017-07-20] MEDS ORDERED: SCOPOLAMINE 1.5 MG TDSY TD ONE (07:56)
[2017-07-20] MEDS ORDERED: FENTANYL CITRATE INJ 50 MCG/1 ML 2 ML VIAL IV PRN (08:00)
[2017-07-20] MEDS ORDERED: ATROPINE SULFATE 0.1 MG/ML 5ML SYR IV PRN (08:00)
[2017-07-20] MEDS ORDERED: ONDANSETRON INJ 2 MG/ML 2 ML VIAL IV PRN ×2 (08:00→10:45)
[2017-07-20] MEDS ORDERED: CHECK SCOPOLAMINE PATCH PLACEMENT SCH (08:00)
[2017-07-20] MEDS ORDERED: SCOPOLAMINE 1.5 MG TDSY TD SCH (08:00)
[2017-07-20] MEDS ORDERED: HYDROmorphone INJ 1 MG/ML SYR IV PRN (08:00)
[2017-07-20] MEDS ORDERED: EpHEDrine SULFATE INJ 50 MG/ML AMP IV PRN (08:00)
[2017-07-20] MEDS ORDERED: PROMETHAZINE HCL INJ 12.5 MG in SODIUM CHLORIDE 0.9% 50ML 50 ML IV PRN ×2 (08:00→10:45)
[2017-07-20] MEDS ORDERED: METHYLENE BLUE 0.5% 10 ML VIAL ONE (08:04)
[2017-07-20] MEDS ORDERED: BUPIVACAINE 0.5 % 5 MG/1 ML MPF 30ML VIAL ONE (08:04)
[2017-07-20] MEDS ORDERED: FENTANYL CITRATE INJ 50 MCG/1 ML 2 ML VIAL ONE (08:11)
[2017-07-20] MEDS ORDERED: MIDAZOLAM HCL 1 MG/ML 2ML VIAL ONE (08:11)
[2017-07-20] MEDS ORDERED: HYDROmorphone INJ 2 MG/ML SYR/VIAL ONE (08:11)
--- NOTE | 2017-07-20 08:12 | History & Physical Bridge Note ---
H&P Re-Evaluation Bridge Note: I have examined the patient, reviewed the History & Physical and in the interval since the performance of the History & Physical I have noted the following changes of clinical significance: No changes noted
[2017-07-20] MEDS ORDERED: DIPH25CA65 PO (08:14)
[2017-07-20 08:15] LABS: PREG INTERNAL NEGATIVE QC NEG CLEAR BACKGROUND; PREG INTERNAL POSITIVE QC POS CONTROL LINE
[2017-07-20] MEDS ORDERED: METOCLOPRAMIDE HCL INJ 5 MG/ML 2 ML VIAL ONE (09:20)
[2017-07-20] MEDS ORDERED: CISATRACURIUM BESYLATE IV SOLN 2 MG/ML 10 ML VIAL ONE (09:20)
[2017-07-20] MEDS ORDERED: ONDANSETRON INJ 2 MG/ML 2 ML VIAL ONE (09:20)
[2017-07-20] MEDS ORDERED: DiphenhydrAMINE HCL 50 MG/ML VIAL ONE (09:20)
[2017-07-20] MEDS ORDERED: PROPOFOL IV EMULSION 10 MG/ML 20 ML VIAL IV ONE (09:20)
[2017-07-20] MEDS ORDERED: LIDOCAINE HCL 2% 2 ML VIAL (20MG/ML) ONE (09:20)
[2017-07-20] MEDS ORDERED: DEXAMETHASONE SOD INJ 4 MG/ML VIAL ONE (09:20)
[2017-07-20] MEDS ORDERED: GLYCOPYRROLATE INJ 0.2 MG/ML VIAL ONE (10:19)
[2017-07-20] MEDS ORDERED: NEOSTIGMINE METHYLSULFATE 5 MG/5 ML SYR ONE (10:19)
[2017-07-20] MEDS ORDERED: SODIUM CHLORIDE 0.9% INJ 10 ML VIAL ONE (10:20)
[2017-07-20] MEDS ORDERED: LACTATED RINGER'S 1000ML 1,000 ML IV SCH (10:31)
--- NOTE | 2017-07-20 10:31 | [facility] Post Operative Brief Note ---
Immediate Operative Summary Operative Date Jul 20, 2017. Pre-Operative Diagnosis Menorrhagia, failed ablation, painful menses Post-Operative Diagnosis Same as preop plus endometriosis Procedure(s) Performed Total Laparoscopic Hysterectomy Bilateral Salpingectomy Robot Asisst; Cystoscopy Surgeon Dr. Martinez Analytical Research Program Manager Surgeon(s) None Estimated Blood Loss 40 ml Findings Endometriotic implants, L hemosalpinx associated with endometriosis, R uterosacral ligament endometriosis, normal ovaries bilaterally, scarring and adhesions associated with prior Specimens A. Cervix, Uterus, Bilateral Fallopian Tubes Complication(s) None Disposition Recovery Room / PACU
[2017-07-20] MEDS ORDERED: OXYC-57 PO (10:39)
--- NOTE | 2017-07-20 10:40 | Discharge Instructions ---
Discharge Instructions Date of Service Jul 20, 2017. Visit Reason for Visit: Menorrhagia Discharge Discharge Diagnosis / Problem: Hysterectomy for failed ablation with painful menses Discharge Goals Goal(s): Specific goals Activity Recommendations Activity Limitations: per Instructions/Follow-up section Anesthesia . Post Anesthesia Instructions: If you have had General Anesthesia or IV Sedation: * Do not drive today. * Resume driving when surgeon permits. * Do not make important decisions or sign legal documents today. * Call surgeon for: 1. Temperature elevations greater than 101 degrees F. 2. Uncontrollable pain. 3. Excessive bleeding. 4. Persistent nausea and vomiting. 5. Medication intolerance (nausea, vomiting or rash). * For nausea and vomiting use only clear liquids such as: tea, soda, bouillon until nausea subsides, then gradually increase diet as tolerated. * If you have any concerns or questions, call your surgeon's office. If physician is unavailable and it is an emergency, call 911 or go to the nearest emergency room. . Instructions / Follow-Up Instructions / Follow-Up POST OPERATIVE: BOWEL FUNCTION/MEDICATIONS: 1. Constipation pain and discomfort are the most common complaints 5-7 days after surgery. Points 2-6 address the things that can help. 2. Chewing gum can help stimulate the gut and help improve digestion and motility. 3. Milk of Magnesia 1-2 times per day until return of bowel function. 4. Colace is a stool softener that helps. Taking this 2-3 times per day until bowel function returns to normal is highly recommended. 5. Dulcolax is a laxative that may be used if several days have passed without a bowel movement. Alternatively Miralax may be used daily instead. 6. Drink plenty of fluids as this will also reduce constipation. 7. Narcotic pain medications will be prescribed by your physician. They are safe to use and we encourage you to use them. If you are not allergic, ibuprofen will also be prescribed. Many patients will be able to transition off of the narcotic medications to ibuprofen by postoperative day 3. ACTIVITY RECOMMENDATIONS: 1. Get plenty of rest and listen to your body. If you are tired, take a nap. 2. You may shower, but do not take a tub bath until you see your doctor at the 2 week post operative visit. 3. Absolutely NO intercourse and nothing in the vagina until you are examined by your doctor at the 6 week visit. At that visit it will be determined when such activities can be resumed. This can range from 6-12 weeks after your surgery depending on healing time. 4. The main physical activity in the first week should be walking. By the second week you can slowly increase activity. There are no limits on walking up and down stairs. 5. Do not lift more than 5-10 lbs for 4 weeks. Remember the "one-handed rule", i.e. if you can lift something with only one hand it's likely okay. 6. Minimize waitstaff like vacuuming and exercising for 4 weeks. "Overdoing it" can lead to incisions not healing, pain and vaginal bleeding , so again, listen to your body. 7. Driving can be resumed when you feel able. Do not drive within 24 hours of taking a narcotic medication. EXPECTATIONS: 1. Vaginal spotting, bleeding and discharge are common after surgery. There may even be an odor to the discharge which is often related to sutures used in the vagina. If you experience heavy vaginal bleeding, call the office number day or night [phone]. 2. Bladder discomfort is common after surgery from the catheter. This usually resolves in 1-2 weeks. 3. By the end of the 3rd or 4th week you should be feeling much better. It may take up to 6 weeks for your energy levels to return to normal. 4. Narcotic medications have side effects such as: dizziness, headache, nausea and/or vomiting. If you suspect your pain medication is causing problems, call our office and we may be able to prescribe an alternate medication. 5. The skin incisions are often covered with a liquid bandage. This will gradually peel off over time. CALL THE OFFICE IF YOU HAVE ANY OF THE FOLLOWIN. Temperature of 101 degrees or higher. 2. Severe abdominal or pelvic pain not relieved by pain medication. 3. Persistent nausea or vomiting. 4. Increased pain with urination or difficulty urinating. 5. Bright red bleeding that soaks more than 1 pad per hour. CONTACT PHONE NUMBERS: Main Office: [phone] Surgical Nurse: [phone] extension [phone] Avoid all tobacco products. If you need help to stop smoking, call [place]'s FREE QUITLINE at . This is a free call. Diet Recommendations Recommended Home Diet: resume previous diet Procedures Procedures Performed: Total Laparoscopic Hysterectomy Bilateral Salpingectomy Robot Asisst; Cystoscopy Pending Studies Studies pending at discharge: no Medical Emergencies . Who to Call and When: Medical Emergencies: If at any time you feel your situation is an emergency, please call 911 immediately. . Non-Emergent Contact Non-Emergency issues call your: Primary Care Provider . . "Provider Documentation" section prepared by Katlyn Martinez. . [place] Drug Monitoring Program Search Results: patient reviewed within database, no issues identified
[2017-07-20] MEDS ORDERED: OXYCODONE/ACETAMINOPHEN 5-325 TAB PO PRN (10:45)
[2017-07-20] MEDS ORDERED: SIMETHICONE 80 MG CHEW PO PRN (10:45)
[2017-07-20] MEDS ORDERED: ACETAMINOPHEN 325 MG TAB PO PRN (10:45)
[2017-07-20] MEDS ORDERED: MEPERIDINE HCL 50 MG/ML CARP IV PRN ×2 (10:45)
[2017-07-20] MEDS ORDERED: KETOROLAC TROMETHAMINE 30 MG/ML VIAL IV. PRN (10:45)
[2017-07-20] MEDS ORDERED: IBUPROFEN 600 MG TAB PO PRN (10:45)
[2017-07-20] MEDS ORDERED: LARYING-O-JET KIT (LTA) ONE ×2 (10:45)
--- NOTE | 2017-07-20 10:56 | OPERATIVE REPORT ---
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 POSTOPERATIVE DIAGNOSIS: Same as above plus endometriosis. PROCEDURE: Total laparoscopic hysterectomy and bilateral salpingectomy with robotic assistance and cystoscopy. SURGEON: Dr. Katlyn Martinez. ASSIST: None. ESTIMATED BLOOD LOSS: 40 mL. FINDINGS: Endometriotic implants on the right uterosacral ligament and the left pelvic wall and fallopian tube including a left mesosalpinx associated with this, normal ovaries bilaterally, scarring and adhesions associated with prior on the anterior lower uterine segment. SPECIMENS: Cervix, uterus and bilateral fallopian tubes. COMPLICATIONS: None. DISPOSITION: Stable to recovery room. DESCRIPTION: Tiffanie is placed on the table in the dorsal lithotomy position with Yellofin stirrups, prepped and draped in standard sterile fashion and a hard time-out was taken prior to proceeding. The bladder was emptied via placement of a Ram. Specula were introduced to the vagina. The cervix was grasped on its anterior lip with a single-tooth tenaculum, sounded and serially dilated to allow passage of the VCare. The VCare was placed. The balloon was inflated. Unfortunately, the balloon was able to slide right back out the cervix, because the cervix was fairly patulous. For this reason and 3-0 Vicryl suture was placed on the anterior cervical lip and then threaded through the VCare cup in order to secure the VCare into the uterus. Once the VCare had been satisfactorily placed the attention was turned to the abdomen. Umbilical entry was made in an optical manner at the umbilicus. This was done without complication. The patient was then placed in steep Trendelenburg and under direct visualization, right and left lower quadrant ports were placed. The robot was then docked and surgery began with dissection of the left fallopian tube away from the pelvic sidewall was performed with fulguration of left pelvic sidewall endometriotic implants and discovery of a mild left hematosalpinx associated with these implants as well. The uteroovarian ligament was ligated and divided and the round ligament was ligated and divided on the left. On the right side, the fallopian tube was dissected off the mesosalpinx. The right uteroovarian ligament was ligated and divided. The round ligament was ligated and divided. A bladder flap was then created across the anterior portion of the lower uterine segment gently peeling away the bladder where it had been adhesed to the prior section site. The uterine artery on the right was ligated, but not divided. The uterine artery on the left was then ligated and divided. Some arterial bleeding was noted and despite several attempts to coagulate this using bipolar cautery bleeding continued. In order to avoid using electrocautery on a fairly lateral portion of the uterine artery, the robotic clip aircraft motor mechanic was then used to apply two 10 mm clips to the stump of the uterine artery in order to achieve complete hemostasis. The right uterine artery was then divided where it had been previously ligated. Colpotomy was then completed in a circumferential fashion and the uterus, cervix and tubes were delivered vaginally. A lap sponge was passed per vagina into the pelvis in order to clear any clot and debris that was currently there. This allowed us to blot and visualize each portion of the colpotomy as well as the left uterine artery site where the clips had been applied. Complete hemostasis remained at all sites. The lap sponge was then removed and a V-Loc suture was used in the usual running nonlocked manner to close the vaginal cuff. Of note, the V-Loc suture did break at the end of the cuff closure towards the left angle; however, there was enough suture remaining to place 1 final angle suture and use knot tying to complete the cuff closure with the existing suture. The needle was then removed through the right lower quadrant port. Suction irrigation was used to assure complete hemostasis and also to remove any remaining clot and debris. Under direct visualization pressure was then let out of the abdomen in order to visualize the cuff under low pressure situation, it remained hemostatic. At that time the decision was made to complete the abdominal portion of the procedure. The robot was undocked and cystoscopy was then performed. Cystoscopy revealed good jets of blue stained urine through each ureteral orifice and intact uninjured bladder dome. The cystoscope was then withdrawn. The cuff was found to be intact on exam. The patient was then transferred in stable condition to the PACU. I attest to the content of the Intraoperative Record and any orders documented therein. Any exception s are noted below.
[2017-07-20] MEDS ORDERED: IV FLUIDS COMPLETED PRN (11:00)
--- NOTE | 2017-07-20 12:04 | Anesthesiology Progress Note ---
Anesthesia Post Op Note Date & Time Jul 20, 2017 at 12:04 Vital Signs Pain Intensity: 0 Vital Signs Past 12 Hours Date Time Temp Pulse Resp B/P (MAP) Pulse Ox O2 Delivery O2 Flow Rate FiO2 07/20/17 11:35 61 16 115/84 95 Oxymask 2 07/20/17 11:25 59 16 112/73 95 Oxymask 2 07/20/17 11:15 36.3 58 16 130/74 94 Oxymask 2 07/20/17 11:05 59 16 120/69 94 Oxymask 2 07/20/17 10:55 59 16 117/68 99 Oxymask 5 07/20/17 10:45 62 16 122/70 97 Oxymask 10 07/20/17 10:39 36.0 59 16 136/69 98 Oxymask 10 07/20/17 08:16 36.6 82 18 112/76 (88) 96 Room Air 07/20/17 07:50 36.6 18 112/76 (88) 96 Room Air Notes Mental Status: alert / awake / arousable, participated in evaluation Pt Amnestic to Procedure: Yes Nausea / Vomiting: adequately controlled Pain: adequately controlled Airway Patency, RR, SpO2: stable & adequate BP & HR: stable & adequate Hydration State: stable & adequate Anesthetic Complications: no major complications apparent
[2017-07-20] MEDS: OXYCODONE/ACETAMINOPHEN 5-325 TAB PO PRN ×2 (14:19→18:22)
[2017-07-20] MEDS ORDERED: DOCUSATE SODIUM 100 MG CAP PO SCH (21:00)
--- NOTE | 2017-08-01 08:49 | Discharge Summary ---
Discharge Summary Date of Service Aug 01, 2017. Discharge Summary Admission Date: Jul 20, 2017 at 07:25 Discharge Date: Jul 20, 2017 Discharge Disposition: Home Principal Diagnosis: Hysterectomy Immunizations: Have You Had Influenza Vaccine: No History of Tetanus Vaccine?: Unknown Tetanus Immunization Date: Jul 09, 2004 History of Pneumococcal: No History of Hepatitis B Vaccine: Yes Hepatitis Immunization Date: Jul 09, 1998 Medication Reconciliation Continued Medications: Albuterol Hfa (Ventolin Hfa) 200 Puffs/23134 Mcg Aers 1-2 PUFFS INH Q4 PRN for Shortness of Breath, #1 INHALER Epinephrine (Epipen) 0.3 Mg/0.3 Ml Inj 0.3 MG IM UD, #1 Naproxen (Aleve) 220 Mg Tab 440 MG PO PRN, TAB Ranitidine (Zantac) 150 Mg Tab 150 MG PO QPM PRN for PRN, TAB Hospital Course Total Time Spent: Less than 30 minutes This includes examination of the patient, discharge planning, medication reconciliation, and communication with other providers. Discharge Instructions Please refer to the electronic Patient Visit Report (Discharge Instructions) for additional information.
== END 2017-07-20 19:20 | disposition home or self-care (01) ==
LOC: C.ACU 07:00 → C.MS4N 07:25 → ENRESERV 11:05
PROVIDERS: ADMIT Obstetrics & Gynecology; ATTEND Obstetrics & Gynecology
DX: N92.0 Excessive and frequent menstruation with regular cycle (principal); J45.909 Unspecified asthma, uncomplicated; M25.50 Pain in unspecified joint; N84.0 Polyp of corpus uteri; N80.0 Endometriosis of uterus
CPT/HCPCS: 58570; S2900

== ENCOUNTER 2017-07-29 10:23 | Emergency (ER) | payer BC ==
[~2017-07-29] VITALS: Ht 165.1 cm; Wt 104.0 kg
[~2017-07-29 10:23] MED LIST changes: -CEFAZOLIN 2000 MG/60 ML D5W 50 ML IV SCH; +DIPH25CA65 PO; -LACTATED RINGER'S 1000ML 1,000 ML IV SCH; +OXYC-57 PO
[2017-07-29 10:26] VITALS: TEMP 36.9; Ht 165.1 cm; Wt 104.0 kg
[2017-07-29] MEDS ORDERED: SODIUM CHLORIDE 0.9% 1000ML 1,000 ML IV STA (10:45)
[2017-07-29] MEDS ORDERED: OXYCODONE HCL IR 5 MG TAB (IMMEDIATE RELEASE) PO STA (10:45)
[2017-07-29 11:00] VITALS: O2SAT 98
--- NOTE | 2017-07-29 11:31 | DIAGNOSTIC IMAGING REPORT ---
CHEST ONE VIEW PORTABLE CLINICAL HISTORY: CHEST PAIN dyspnea COMPARISON STUDY: 03/27/2017 FINDINGS: The bones soft tissues and hemidiaphragms are normal. The cardiomediastinal silhouette is normal. The lungs are clear. The pulmonary vasculature is normal. IMPRESSION: Negative chest. The above report was generated using voice recognition software. It may contain grammatical, syntax or spelling errors. Electronically signed by: Tucker Escalante M.D. 07/29/2017 11:30 AM Dictated Date/Time: 07/29/2017 11:29 AM
[2017-07-29 11:32] LABS: BASO % 0.4 %; BASO ABS # 0.03 K/uL (0-0.2); COMPLETE YES; EOS % 3.7 %; HEMATOCRIT 42.8 % (37-47); LYMPH % 21.8 %; LYMPH ABS # 1.72 K/uL (1.2-3.4); MEAN CELL VOLUME 89.2 fL (80-100); MEAN CORPUSCULAR HEMOGLOBIN 30.4 pg (25-34); MEAN CORPUSCULAR HGB CONC 34.1 g/dl (32-36); MEAN PLATELET VOLUME 10.6 fL (7.4-10.4); NEUT % 65.1 %; PLATELET COUNT 258 K/uL (130-400); WHITE BLOOD COUNT 7.89 K/uL (4.8-10.8)
[2017-07-29 11:36] LABS: INR 0.9 (0.9-1.1)
[2017-07-29 11:44] LABS: ALT/SGPT 35 U/L (12-78); AST/SGOT 21 U/L (15-37); BLOOD UREA NITROGEN 18 mg/dl (7-18); BUN/CREATININE RATIO 16.7 (10-20); CALCIUM 8.9 mg/dl (8.5-10.1); CARBON DIOXIDE 23 mmol/L (21-32); CHLORIDE 108 mmol/L (98-107); GLUCOSE 110 mg/dl (70-99); POTASSIUM 4.2 mmol/L (3.5-5.1); SODIUM 141 mmol/L (136-145)
[2017-07-29 11:49] LABS: ALKALINE PHOSPHATASE 64 U/L (45-117); CKMB/CK RATIO 1.2 (0-3.0)
[2017-07-29] MEDS ORDERED: OPTIRAY 320 IV PRN (12:15)
[2017-07-29 12:21] VITALS: BP 104/72; O2SAT 98
--- NOTE | 2017-07-29 13:08 | DIAGNOSTIC IMAGING REPORT ---
(CHEST FOR PE) ANGIO WITH CT DOSE: 706.03 mGy.cm HISTORY: Chest pain dyspnea TECHNIQUE: Multiaxial CT images of the chest were performed following the intravenous administration of contrast to evaluate the pulmonary arteries. Maximal intensity projection images were also obtained. A dose lowering technique was utilized adhering to the principles of ALARA. COMPARISON STUDY: 01/10/2017 FINDINGS: There is a normal caliber thoracic aorta with no evidence for dissection. There is no evidence for pulmonary embolus. No pleural effusions. No pneumothorax. The liver and spleen are unremarkable. No mediastinal or hilar lymphadenopathy. The central airways are patent. The lungs are clear. IMPRESSION: No evidence for pulmonary embolus. The lungs are clear. No change from the prior exam. The above report was generated using voice recognition software. It may contain grammatical, syntax or spelling errors. Electronically signed by: Tucker Escalante M.D. 07/29/2017 1:06 PM Dictated Date/Time: 07/29/2017 1:05 PM
[2017-07-29] MEDS ORDERED: CYCL10TA6 PO (13:38)
[2017-07-29] MEDS ORDERED: OXYC1TAB3 PO (13:38)
[2017-07-29 13:44] VITALS: PULSE 65
--- NOTE | 2017-07-29 17:52 | EMERGENCY ROOM VISIT NOTE ---
History First contact with patient: 10:33 Chief Complaint: RESPIRATORY PROBLEMS Stated Complaint: LEFT LUNG, HURTS TO BREATHE Nursing Triage Summary: triage note: Pt reports hysterectomy at [facility] last week. pt reports at 0830 she let her dogs out and bent over and stood up and started to have a "spasm" on her left lower back "where my lungs are." pt reports she cannot take deep breath due to pain on left side. History of Present Illness The patient is a 52 year old female who presents to the Emergency Room with complaints of left lower back and lung pain. The patient reports that she awoke this morning feeling fine. At 8:30 AM, she let her dogs out. 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 The patient reports that it then started to spread out across the left posterior ribs. She noticed worsening pain with deep breathing. She denies any anterior chest pain, specific shortness of breath, diaphoresis or nausea. The patient had a hysterectomy performed 9 days ago, and has been recovering nicely. She denies any abdominal pain, urinary symptoms or diarrhea. The patient reports that she has been dealing with constipation because of Percocet she had been taking for her surgery. She is trying to wean herself off of the Percocet for this reason. She did take some Advil this morning which did not help with her pain. The patient reports a prior history of PVCs. She underwent a stress echo in January [address] Richardson. Her testing was normal. Her is concerned for a blood clot in the lung. The patient rates her discomfort an 8 out of 10. Review of Systems HEENT: Denies dizziness, visual problems, hearing loss, tinnitus. Denies difficulty swallowing or oral lesions. PULMONARY: Denies cough, shortness of breath, sputum production or hemoptysis. CARDIOVASCULAR: Denies chest pain, palpitations, dyspnea on exertion, orthopnea or peripheral edema. GASTROINTESTINAL: Denies diarrhea, constipation, nausea, vomiting, or abdominal pain. GENITOURINARY: Denies dysuria, frequency, urgency or nocturia. NEUROLOGIC: Denies history of epilepsy, CVA, TIA or chronic headaches. MUSCULOSKELETAL: Denies history of joint tenderness/swelling. SKIN: Denies rashes or lesions. PSYCHIATRIC: Denies history of depression or mental illness. ENDOCRINE: Denies history of diabetes or thyroid disorders. Past Medical/Surgical History Medical Problems: (1) Asthma, Unspecified (2) Chest pain (3) Cholelithiasis Nos (4) Esophageal Reflux (5) Int Hemrrhoid W Comp Nec (6) Menorrhagia (7) Paresthesia (8) Supraventricular tachycardia Family History Cancer Diabetes mellitus Heart disease Hypertension Hypothyroidism Lung disease Social History Smoking Status: Never Smoker Alcohol Use: occasionally Marital Status: Housing Status: lives with family Occupation Status: employed Current/Historical Medications Scheduled Epinephrine (Epipen), 0.3 MG IM UD Naproxen (Aleve), 440 MG PO PRN Scheduled PRN Albuterol Hfa (Ventolin Hfa), 1-2 PUFFS INH Q4 PRN for Shortness of Breath Cyclobenzaprine Hcl (Flexeril), 10 MG PO TID PRN for spasm Oxycodone Ir (Roxicodone Ir), 1 TAB PO Q4H PRN for Pain Ranitidine (Zantac), 150 MG PO QPM PRN for PRN Physical Exam Vital Signs Date Time Temp Pulse Resp B/P (MAP) Pulse Ox O2 Delivery O2 Flow Rate FiO2 07/29/17 13:44 65 18 07/29/17 13:40 68 07/29/17 12:21 78 18 104/72 98 07/29/17 11:00 98 Room Air 07/29/17 10:42 85 07/29/17 10:26 36.9 87 18 125/85 98 Room Air Physical Exam CONSTITUTIONAL: Healthy and well nourished. Alert and oriented X 3 with positive affect. She appears in moderate to severe discomfort. HEENT: Normocephalic, atraumatic. Pupils equal, round and reactive. NECK: Full active range of motion without discomfort. No JVD or carotid bruits. RESPIRATORY: Clear to auscultation bilaterally with no wheezing, crackles, rhonchi or stridor. Deep breathing worsens the patient's discomfort. CARDIOVASCULAR: Regular rate and rhythm with no murmurs, rubs or gallops. GASTROINTESTINAL: Bowel sounds present in all quadrants. Soft and nontender to palpation. MUSCULOSKELETAL: Examination shows mild tenderness to palpation through the left lumbar paraspinous muscle and left posterior ribs. No palpable muscle spasm noted. She has no tenderness to palpation of the anterior chest. INTEGUMENTARY: No rash or other significant dermatologic conditions noted. HEMATOLOGIC: No ecchymosis or petechiae. NEUROLOGIC: No focal neurologic deficits noted. Medical Decision & Procedures ER Provider Diagnostic Interpretation: My interpretation of an ECG shows a normal sinus rhythm of [address] elevation or other conduction abnormalities. Computer reading is suggestive of an incomplete right bundle subha block. My interpretation of a portable chest x-ray does not show any consolidations or pneumothorax. Radiologist report is as follows: CHEST ONE VIEW PORTABLE CLINICAL HISTORY: CHEST PAIN dyspnea COMPARISON STUDY: 03/27/2017 FINDINGS: The bones soft tissues and hemidiaphragms are normal. The cardiomediastinal silhouette is normal. The lungs are clear. The pulmonary vasculature is normal. IMPRESSION: Negative chest. Chest CT angiography does not show any evidence for acute pulmonary embolus or other acute findings. Radiologist report is as follows: (CHEST FOR PE) ANGIO WITH CT DOSE: 706.03 mGy.cm HISTORY: Chest pain dyspnea TECHNIQUE: Multiaxial CT images of the chest were performed following the intravenous administration of contrast to evaluate the pulmonary arteries. Maximal intensity projection images were also obtained. A dose lowering technique was utilized adhering to the principles of ALARA. COMPARISON STUDY: 01/10/2017 FINDINGS: There is a normal caliber thoracic aorta with no evidence for dissection. There is no evidence for pulmonary embolus. No pleural effusions. No pneumothorax. The liver and spleen are unremarkable. No mediastinal or hilar lymphadenopathy. The central airways are patent. The lungs are clear. IMPRESSION: No evidence for pulmonary embolus. The lungs are clear. No change from the prior exam. Laboratory Results 07/29/17 11:06 Red Blood Count 4.80, Mean Corpuscular Volume 89.2, Mean Corpuscular Hemoglobin 30.4, Mean Corpuscular Hemoglobin Concent 34.1, Mean Platelet Volume 10.6, Neutrophils (%) (Auto) 65.1, Lymphocytes (%) (Auto) 21.8, Monocytes (%) (Auto) 9.0, Eosinophils (%) (Auto) 3.7, Basophils (%) (Auto) 0.4, Neutrophils # (Auto) 5.14, Lymphocytes # (Auto) 1.72, Monocytes # (Auto) 0.71, Eosinophils # (Auto) 0.29, Basophils # (Auto) 0.03 07/29/17 11:06 Test 07/29/17 11:06 White Blood Count 7.89 K/uL (4.8-10.8) Red Blood Count 4.80 M/uL (4.2-5.4) Hemoglobin 14.6 g/dL (12.0-16.0) Hematocrit 42.8 % (37-47) Mean Corpuscular Volume 89.2 fL (80-100) Mean Corpuscular Hemoglobin 30.4 pg (25-34) Mean Corpuscular Hemoglobin Concent 34.1 g/dl (32-36) Platelet Count 258 K/uL (130-400) Mean Platelet Volume 10.6 fL (7.4-10.4) Neutrophils (%) (Auto) 65.1 % Lymphocytes (%) (Auto) 21.8 % Monocytes (%) (Auto) 9.0 % Eosinophils (%) (Auto) 3.7 % Basophils (%) (Auto) 0.4 % Neutrophils # (Auto) 5.14 K/uL (1.4-6.5) Lymphocytes # (Auto) 1.72 K/uL (1.2-3.4) Monocytes # (Auto) 0.71 K/uL (0.11-0.59) Eosinophils # (Auto) 0.29 K/uL (0-0.5) Basophils # (Auto) 0.03 K/uL (0-0.2) RDW Standard Deviation 40.6 fL (36.4-46.3) RDW Coefficient of Variation 12.6 % (11.5-14.5) Immature Granulocyte % (Auto) 0.0 % Immature Granulocyte # (Auto) 0.00 K/uL (0.00-0.02) Prothrombin Time 10.0 SECONDS (9.0-12.0) Prothromb Time International Ratio 0.9 (0.9-1.1) Activated Partial Thromboplast Time 25.0 SECONDS (21.0-31.0) Partial Thromboplastin Ratio 1.0 D-Dimer 2370 ug/L FEU (0-500) Anion Gap 10.0 mmol/L (3-11) Est Creatinine Clear Calc Drug Dose 72.4 ml/min Estimated GFR () 67.3 Estimated GFR (Non- 58.1 BUN/Creatinine Ratio 16.7 (10-20) Calcium Level 8.9 mg/dl (8.5-10.1) Total Bilirubin 0.4 mg/dl (0.2-1) Direct Bilirubin < 0.1 mg/dl (0-0.2) Aspartate Amino Transf (AST/SGOT) 21 U/L (15-37) Alanine Aminotransferase (ALT/SGPT) 35 U/L (12-78) Alkaline Phosphatase 64 U/L (45-117) Total Creatine Kinase 49 U/L (26-192) Creatine Kinase MB 0.6 ng/ml (0.5-3.6) Creatine Kinase MB Ratio 1.2 (0-3.0) Troponin I < 0.015 ng/ml (0-0.045) Total Protein 7.0 gm/dl (6.4-8.2) Albumin 3.8 gm/dl (3.4-5.0) Lipase 121 U/L (73-393) The above labs were reviewed. D-dimer is elevated. Troponin was normal. CBC, partial renal profile, LFTs and lipase are normal. Medications Administered Medications (Trade) Dose Ordered Sig/Petar Route Start Time Stop Time Status Last Admin Dose Admin Oxycodone HCl (Roxicodone Immediate Rel Tab) 5 mg NOW STAT PO 07/29/17 10:45 07/29/17 10:48 DC 07/29/17 11:14 5 MG Sodium Chloride 1,000 ml @ 999 mls/hr Q1H1M STAT IV 07/29/17 10:45 07/29/17 11:45 DC 07/29/17 11:18 999 MLS/HR ED Course Patient history and physical exam were performed. Nurse's notes were reviewed. Vital signs were reviewed and were normal. The patient was administered OxyIR 5 mg for pain. IV access was established, and labs were drawn. The patient was hydrated with a liter normal saline. Labs were reviewed to show an elevated d-dimer, otherwise remaining labs were normal. ECG and portable chest x-ray were normal. Although I suspected that her d-dimer was elevated from her surgery, chest CT angiography was performed to rule out PE. Her CT was normal. The patient was advised, as initially suspected, but her pain was likely musculoskeletal etiology. The patient was encouraged to intermittently apply ice to the back, then moist heat as needed. The patient reports that she does have a few Percocets left at home from her surgery. She was provided an additional small prescription for OxyIR 5 mg and Flexeril 10 mg. She was encouraged to follow-up with her PCP as needed for further management, returning to the emergency department for other concerning symptoms. The patient was happy with plan of care, voiced understanding of all discharge instructions, and rated her pain a 3 out of 10 at the conclusion of my exam. Medical Decision Patient presents to the emergency department with abrupt onset of left back and rib pain after leaning over this morning. This is most consistent with a musculoskeletal etiology. However, the patient was concern that the pain was from her lung. The was also concerned about the potential for pulmonary embolus. Her workup otherwise is not suggestive of an acute cardiopulmonary etiology. Her CT angiography does not show any evidence for pulmonary emboli. I do not suspect fractures or intra-abdominal etiologies. [place] Drug Monitoring Program Search Results: patient reviewed within database, no issues identified Medication Reconcilliation Current Medication List: was personally reviewed by me Blood Pressure Screening Patient's blood pressure: Normal blood pressure Impression Primary Impression: Back strain Departure Information Prescriptions Oxycodone Ir (Roxicodone Ir) 5 Mg Tab 1 TAB PO Q4H Y for Pain, #10 TAB For Initial Treatment Prov: Tboi Webster PA 07/29/17 Cyclobenzaprine Hcl (FLEXERIL) 10 Mg Tab 10 MG PO TID Y for spasm, #15 TAB Prov: Tobi Webster PA 07/29/17 Referrals Kalpesh Martinez M.D. (PCP) Forms WORK / SCHOOL INSTRUCTIONS, HOME CARE DOCUMENTATION FORM, IMPORTANT VISIT INFORMATION Patient Instructions [facility] Problem Qualifiers Primary Impression: Back strain Encounter type: initial encounter Qualified Codes: S39.012A - Strain of muscle, fascia and tendon of lower back, initial encounter
== END 2017-07-29 13:45 | disposition home or self-care (01) ==
LOC: C.EDB 10:24 → C.EDC 13:45
DX: S39.012A Strain of muscle, fascia and tendon of lower back, initial encounter (principal); X50.0XXA Overexertion from strenuous movement or load, initial encounter; Z90.710 Acquired absence of both cervix and uterus; Z98.890 Other specified postprocedural states; J45.909 Unspecified asthma, uncomplicated; K21.9 Gastro-esophageal reflux disease without esophagitis; Z80.9 Family history of malignant neoplasm, unspecified; Z83.3 Family history of diabetes mellitus; Z82.49 Family history of ischemic heart disease and other diseases of the circulatory system; Z83.49 Family history of other endocrine, nutritional and metabolic diseases; Z79.899 Other long term (current) drug therapy

== ENCOUNTER → 2017-12-25 | Outpatient (CLI) | payer OTHER ==
[~2017-12-25] MED LIST changes: -CALC1TAB25 PO; -CLR10 PO; -DIPH25CA65 PO; -OXYC-57 PO; +OXYC1TAB3 PO; +RANI150T85 PO; -SNG10 PO; -ZNTT/150 PO
--- NOTE | 2017-12-26 09:38 | PULMONARY FUNCTION TEST ---
CLINICAL DATA: A 52-year-old female with height of 64 inches and a weight of [address] Kalpesh Martinez for evaluation of asthma. Spirometry pre-bronchodilator was performed. FINDINGS: Pre-bronchodilator spirometry shows very minimal small airway obstruction. FVC was 107% of predicted. FEV1 was 100% of predicted. [id number] was minimally reduced at 79% of predicted. IMPRESSION: Very mild small airway obstruction consistent with a clinical diagnosis of asthma. MTDD
== END | disposition home or self-care (01) ==
LOC: C.RC 11:10
PROVIDERS: ATTEND Family Medicine
DX: J45.40 Moderate persistent asthma, uncomplicated (principal)

== ENCOUNTER → 2018-02-18 | Outpatient (CLI) | payer OTHER ==
[~2018-02-18] MED LIST changes: -OXYC1TAB3 PO
--- NOTE | 2018-02-18 09:25 | DIAGNOSTIC IMAGING REPORT ---
(BARIUM SWALLOW) ESOPHAGUS CLINICAL HISTORY: PARAGEUSIA COMPARISON STUDY: Chest CTA 07/29/2017. FLUOROSCOPY TIME: 1.3 minutes.. FINDINGS: 21 fluoroscopic spot images were obtained. The patient swallowed barium without difficulty. The esophagus is normal in course and motility. However, there appears to be a mild smooth stricture within the proximal esophagus best seen on images 17 and 18. However, the barium tablet passed without difficulty. The contours of the hypopharynx are within normal limits. No hiatus hernia. No gastroesophageal reflux. IMPRESSION: There is suggestion of a mild smooth stricture within the proximal esophagus. Consider endoscopy for further evaluation. Electronically signed by: Grzegorz Cramer M.D. 02/18/2018 9:24 AM Dictated Date/Time: 02/18/2018 9:05 AM
== END | disposition home or self-care (01) ==
LOC: C.RAD 08:34
PROVIDERS: ATTEND Family Medicine
DX: R43.2 Parageusia (principal)

== ENCOUNTER → 2018-03-13 | Outpatient (CLI) | payer OTHER ==
[~2018-03-13] MED LIST changes: +BUDE180I INH; +FEXO1TAB49 PO; +FLUT50SP45 NAE; +MONT1TAB3 PO
== END | disposition home or self-care (01) ==
LOC: C.RDSM 16:33
PROVIDERS: ATTEND Podiatrist
DX: M79.671 Pain in right foot (principal); G89.29 Other chronic pain; Z88.1 Allergy status to other antibiotic agents; Z91.048 Other nonmedicinal substance allergy status

== ENCOUNTER → 2018-03-20 | Outpatient (CLI) | payer OTHER ==
--- NOTE | 2018-03-20 18:12 | DIAGNOSTIC IMAGING REPORT ---
R LOWER EXT NONJOINT WITHOUT HISTORY: 52 years-old Female M79.671,M72.2,M76.71,M76.61 acute foot pain with concern for plantar fasciitis. Pain and swelling is most pronounced laterally within the hindfoot. COMPARISON: Right foot radiographs 03/13/2018 TECHNIQUE: Multiplanar multisequence MRI of the forefoot and hindfoot was obtained without the use of IV contrast. FINDINGS: Oil marker is placed about the lateral ankle just inferior to the lateral malleolus. LATERAL LIGAMENT COMPLEX: The anterior talofibular ligament, calcaneofibular ligament and posterior talofibular ligaments are intact. SYNDESMOTIC LIGAMENTS: The anterior-inferior tibiofibular ligament, interosseous membrane and posterior-inferior tibiofibular ligaments are intact. DELTOID LIGAMENT COMPLEX: The superficial and deep components of the deltoid ligament are intact. ANTERIOR TENDONS: The tibialis anterior, extensor hallucis longus and extensor digitorum longus tendons are normal in position, morphology and signal. LATERAL TENDONS: The peroneus longus and brevis tendons are intact. Minimal tenosynovitis of the peroneus longus along the inframalleolar groove. MEDIAL TENDONS: The posterior tibialis, flexor digitorum longus and flexor hallucis longus tendons are intact. Trace tenosynovitis of the tibialis posterior along the inframalleolar groove. PLANTAR FASCIA: Moderate sized enthesophyte about the plantar calcaneus. There is mild thickening about the medial and lateral cords of the plantar fascia compatible with chronic plantar fasciitis without significant acute inflammatory changes or tear. No evidence of plantar fascial nodules. ACHILLES TENDON: Moderate sized enthesophyte about the calcaneus at the Achilles insertion site. The Achilles tendon is normal in position, morphology and signal. No associated bursitis. SINUS TARSI: There is normal fat signal within the sinus tarsi. The interosseous and cervical ligaments are normal. The navicular-calcaneal (spring) ligament is without acute abnormality. TARSAL TUNNEL: There are no obstructing lesions within the tarsal tunnel. BONE MARROW: Bone marrow is normal in signal without evidence of fracture, marrow contusion or marrow occupying lesion. No evidence of stress fracture. Mild osteoarthritis with subcortical cystic changes and mild marginal spurring about the first MTP joint. SOFT TISSUES: Mild subcutaneous edema superficial to the lateral malleolus near the skin marker, nonspecific. 1.2 cm T2 hyperintense structure adjacent to the lateral anterior process talus suggests small ganglion. FOREFOOT STRUCTURES: Lisfranc ligament is identified and appears intact. No evidence of acute plantar plate injury. No evidence of perineural fibrosis (Alba neuroma). Trace fluid within the first and second web spaces may reflect intermetatarsal bursitis. No evidence of adventitial bursitis. Imaged flexor and extensor tendons about the forefoot appear intact. IMPRESSION: 1. Evidence of chronic plantar fasciitis without evidence of plantar fascial nodules or tear. 2. Trace tenosynovitis of the peroneus longus and tibialis posterior tendons. 3. Mild osteoarthritis about the first MTP joint. 4. Mild nonspecific subcutaneous edema about the lateral malleolus, deep to the skin marker. The above report was generated using voice recognition software. It may contain grammatical, syntax or spelling errors. Electronically signed by: Sai Powell M.D. 03/20/2018 6:11 PM Dictated Date/Time: 03/20/2018 5:54 PM
== END | disposition home or self-care (01) ==
LOC: C.MRIBC 15:42
PROVIDERS: ATTEND Podiatrist
DX: M72.2 Plantar fascial fibromatosis (principal); M79.671 Pain in right foot; M76.71 Peroneal tendinitis, right leg; M76.61 Achilles tendinitis, right leg

== ENCOUNTER → 2018-03-25 | Day surgery (SDC) | payer OTHER ==
[2018-03-14 16:59] VITALS: Ht 165.1 cm; Wt 113.6 kg
[~2018-03-25] VITALS: Ht 165.1 cm; Wt 113.6 kg
[~2018-03-25] MED LIST changes: +LIDOCAINE HCL 2% 2 ML VIAL (20MG/ML) ONE; +PROPOFOL IV EMULSION 10 MG/ML 20 ML VIAL ONE
--- NOTE | 2018-03-25 14:06 | Endo History and Physical ---
History & Physical Date of Service: March 25, 2018. Chief Complaint: dysphagia Referring Physician: Dr. Kalpesh Martinez History of Present Illness For EGD Past Medical History Asthma, Gastrointestinal Disorder, Reflux, Sleep Apnea Past Surgical History Hx Cardiac Surgery: Yes (CARDIAC CATH NO STENT-1987,CARDIAC ABLATION 1990) Hx Internal Defibrillator: No Hx Pacemaker: No Hx Abdominal Surgery: Yes (OPEN APPENDECTOMY, UMBILICAL HERNIA REPAIR, C SECTION, HYSTER) Hx Post-Op Nausea and Vomiting: Yes Hx Cancer Surgery: No Hx Thoracic Surgery: No Hx Orthopedic: Yes (LEFT SHOULDER ARTHROSCOPY) Hx Urinary Tract Surgery: No Social History Smoking Status: Never Smoker Hx Substance Use: No Hx Alcohol Use: No Allergies Coded Allergies: Azithromycin (Verified Allergy, Severe, throat swelling, 03/14/18) Adhesives (Verified Allergy, Mild, RASH, 03/14/18) Latex (Verified Allergy, Mild, RASH, 03/14/18) Propoxyphene (Verified Allergy, Mild, RASH, 03/14/18) [place] (Verified Allergy, Unknown, THROAT SWELLING, 03/14/18) Amoxicillin (Verified Allergy, Unknown, UNKNOWN, 03/14/18) Clavulanic Acid (Verified Allergy, Unknown, UNKNOWN, 03/14/18) Morphine (Verified Adverse Reaction, Mild, SYNCOPE, 03/14/18) Uncoded Allergies: WALNUTS (Allergy, Mild, RASH, 03/14/18) Current Medications Reported Home Medications Medications Dose Route/Sig Max Daily Dose Days Date Category Pulmicort Flexhaler (Budesonide (Inhalation)) 180 Mcg/Act Inh 2 Puffs INH DAILY 30 03/14/18 Reported Allergy Nasal [place] 24 Ho (Fluticasone Propionate (Nasal)) 50 Mcg/Act Spr 2 Sprays ARACELI DAILY PRN 03/14/18 Reported Lita Allergy (Fexofenadine Hcl) 180 Mg Tab 1 Tab PO QPM 30 03/14/18 Reported Singulair (Montelukast Sodium) 10 Mg Tab 1 Tab PO DAILY 90 03/14/18 Reported Aleve (Naproxen) 220 Mg Tab 440 Mg PO PRN 07/12/17 Reported Ventolin Hfa (Albuterol) 200 Puffs/20559 Mcg Aers 1-2 Puffs INH Q4 PRN 01/10/17 Reported Zantac (Ranitidine HCl) 150 Mg Tab 150 Mg PO QPM 01/05/16 Reported Epipen (Epinephrine) 0.3 Mg/0.3 Ml Inj 0.3 Mg IM UD 05/23/15 Rx Vital Signs Weight (Kilograms): 113.64 Height (Feet): 5 Height (Inches): 5 Date Time Temp Pulse Resp B/P (MAP) Pulse Ox O2 Delivery O2 Flow Rate FiO2 03/25/18 13:31 36.7 78 20 121/74 (90) 96 Room Air Physical Exam General Appearance: + obese Respiratory/Chest: Respiratory effort: no dyspnea Cardiovascular: Heart Auscultation: RRR Abdomen: Inspection & Palpation: soft Assessment and Plan Dysphagia for EGD
--- NOTE | 2018-03-25 14:20 | Discharge Instructions ---
Endoscopy Patient Instructions Date / Procedure(s) Performed March 25, 2018. EGD Allergy Information Coded Allergies: Azithromycin (Verified Allergy, Severe, throat swelling, 03/14/18) Adhesives (Verified Allergy, Mild, RASH, 03/14/18) Latex (Verified Allergy, Mild, RASH, 03/14/18) Propoxyphene (Verified Allergy, Mild, RASH, 03/14/18) [place] (Verified Allergy, Unknown, THROAT SWELLING, 03/14/18) Amoxicillin (Verified Allergy, Unknown, UNKNOWN, 03/14/18) Clavulanic Acid (Verified Allergy, Unknown, UNKNOWN, 03/14/18) Morphine (Verified Adverse Reaction, Mild, SYNCOPE, 03/14/18) Uncoded Allergies: WALNUTS (Allergy, Mild, RASH, 03/14/18) Discharge Date / Findings March 25, 2018. Normal EGD Medication Instructions Restart Stopped Medication(s): resume meds Reported Home Medications Medications Dose Route/Sig Max Daily Dose Days Date Category Pulmicort Flexhaler (Budesonide (Inhalation)) 180 Mcg/Act Inh 2 Puffs INH DAILY 30 03/14/18 Reported Allergy Nasal [place] 24 Ho (Fluticasone Propionate (Nasal)) 50 Mcg/Act Spr 2 Sprays ARACELI DAILY PRN 03/14/18 Reported Lita Allergy (Fexofenadine Hcl) 180 Mg Tab 1 Tab PO QPM 30 03/14/18 Reported Singulair (Montelukast Sodium) 10 Mg Tab 1 Tab PO DAILY 90 03/14/18 Reported Aleve (Naproxen) 220 Mg Tab 440 Mg PO PRN 07/12/17 Reported Ventolin Hfa (Albuterol) 200 Puffs/43468 Mcg Aers 1-2 Puffs INH Q4 PRN 01/10/17 Reported Zantac (Ranitidine HCl) 150 Mg Tab 150 Mg PO QPM 01/05/16 Reported Epipen (Epinephrine) 0.3 Mg/0.3 Ml Inj 0.3 Mg IM UD 05/23/15 Rx Provider Instructions Activity Restrictions - No exercising or heavy lifting for 24 hours. - Do not drink alcohol the day of the procedure. - Do not drive a car or operate machinery until the day after the procedure. - Do not make any important decisions or sign important papers in 24 hours after the procedure. Following Day: - Return to full activity which may include returning to work/school. Diet Start your diet with liquids and light foods (jello, soup, juice, toast). Then eat your usual diet if not nauseated. Treatment For Common After Affects For mild abdominal pain, bloating, or excessive gas: - Rest - Eat lightly - Lie on right side Follow-Up Information Follow-up with Dr. Kalpesh Martinez as scheduled Anesthesia Information What You Should Know You have had a procedure that required some medicine to reduce anxiety and discomfort. This treatment is called moderate sedation. After receiving the treatment, you may be sleepy, but you will be able to breathe on your own. The effects of the treatment may last for several hours. Follow these instructions along with Activity/Diet recommendations noted above: * Do NOT do anything where dizziness or clumsiness would be dangerous. * Rest quietly at home today, then you can be up and about tomorrow. * Have a responsible person stay with you the rest of today. * You may have had an I.V. today. If so, you may take the dressing off later today. Recommendations Call your doctor if: * Trouble breathing * Continuous vomiting for more than 24 hours * Temperature above 101 degrees * Severe abdominal pain or bloating * Pain not relieved by pain medicine ordered * There is increased drainage or redness from any incision * A large amount of rectal bleeding greater than 2-3 tablespoons. (If you had a polyp/s removed or have hemorrhoids, a small amount of blood - from the rectum is to be expected.) * You have any unanswered questions or concerns. IN THE EVENT OF A SERIOUS EMERGENCY, GO TO THE NEAREST EMERGENCY ROOM Your discharge instructions were prepared by provider Ton Simmons. Patient Instructions Signature Page Tiffanie Ontiveros Patient (or Guardian) Signature/Date: I have read and understand the instructions given to me by my caregivers. Caregiver/RN/Doctor Signature/Date: The above-named patient and/or guardian has received patient instructions on this date. + Original Patient Signature Page (only) stays with chart. Please make copy for patient.
--- NOTE | 2018-03-25 14:23 | GI REPORT ---
Patient Name: Tiffanie Ontiveros Procedure Date: 03/25/2018 1:41 PM Date of : 1965 Admit Type: Outpatient Age: 52 Gender: Female Attending MD: Ton Simmons MD Procedure: Upper GI endoscopy Providers: Ton Simmons MD Referring MD: Kalpesh Martinez Indications: Dysphagia Medicines: Propofol total dose 180 mg IV, Lidocaine 40 mg IV Complications: No immediate complications. Estimated Blood Loss: Estimated blood loss was minimal. Procedure: Pre-Anesthesia Assessment: - Prior to the procedure, a History and Physical was performed, and patient medications, allergies and sensitivities were reviewed. The patient's tolerance of previous anesthesia was reviewed. - The risks and benefits of the procedure and the sedation options and risks were discussed with the patient. All questions were answered and informed consent was obtained. After obtaining informed consent, the endoscope was passed under direct vision. Throughout the procedure, the patient's blood pressure, pulse, and oxygen saturations were monitored continuously. The scope was introduced through the mouth, and advanced to the second part of duodenum. The upper GI endoscopy was accomplished without difficulty. The patient tolerated the procedure well. Findings: The Z-line was regular and was found 35 cm from the incisors. The middle third of the esophagus was normal. Biopsies were taken with a cold forceps for histology. Estimated blood loss was minimal. The entire examined stomach was normal. The examined duodenum was normal. Impression: - Z-line regular, 35 cm from the incisors. - Normal middle third of esophagus. Biopsied. - Normal stomach. - Normal examined duodenum. Recommendation: - Discharge patient to home (ambulatory). - Continue present medications. - Await pathology results. - Return to primary care physician PRN. Ton Simmons M.D. Ton Simmons MD 03/25/2018 2:22:45 PM This report has been signed electronically. Note Initiated On: 03/25/2018 1:41 PM Number of Addenda: 0 I attest to the content of the Intraoperative Record and orders documented therein, exceptions below {[id number]}
--- NOTE | 2018-03-25 14:53 | Anesthesiology Progress Note ---
Anesthesia Post Op Note Date & Time March 25, 2018 at 14:53 Vital Signs Pain Intensity: 0 Vital Signs Past 12 Hours Date Time Temp Pulse Resp B/P (MAP) Pulse Ox O2 Delivery O2 Flow Rate FiO2 03/25/18 14:43 64 18 114/75 (88) 98 Room Air 03/25/18 14:27 71 16 130/86 (101) 98 Room Air 03/25/18 13:31 36.7 78 20 121/74 (90) 96 Room Air Notes Mental Status: alert / awake / arousable, participated in evaluation Pt Amnestic to Procedure: Yes Nausea / Vomiting: adequately controlled Pain: adequately controlled Airway Patency, RR, SpO2: stable & adequate BP & HR: stable & adequate Hydration State: stable & adequate Anesthetic Complications: no major complications apparent
[2018-03-25 14:54] VITALS: BP 117/77; PULSE 64; O2SAT 99
== END | disposition home or self-care (01) ==
LOC: C.GI 13:03
PROVIDERS: ATTEND Internal Medicine Gastroenterology
DX: R13.10 Dysphagia, unspecified (principal); G62.9 Polyneuropathy, unspecified; J45.909 Unspecified asthma, uncomplicated; K21.9 Gastro-esophageal reflux disease without esophagitis; G47.30 Sleep apnea, unspecified; Z88.1 Allergy status to other antibiotic agents; Z91.040 Latex allergy status; Z88.5 Allergy status to narcotic agent; Z91.018 Allergy to other foods; Z79.899 Other long term (current) drug therapy